=== PATIENT | male | born 1990 | race Caucasian/White ===

== ENCOUNTER 2019-04-12 11:11 | Outpatient (REF) | payer BC, SELFPAY ==
[2019-04-12 12:31] LABS: Absolute Basophil Count 0.07 k/cumm (0.0-0.2); Absolute Eosinophil Count 0.04 k/cumm (0.0-0.7); Absolute Lymphocyte Count 0.55 k/cumm (1.2-3.4); Absolute Neutrophil Count 2.41 k/cumm (1.2-6.7); Basophils % 2.1; Eosinophils % 1.2; Lymphocytes % 16.3; Mean Corp. HGB Concentration 24.1 g/dL (32.0-36.0); Mean Corpuscular Hemoglobin 16.4 pg (27.0-33.0); Mean Corpuscular Volume 67.9 fL (80-95); Monocytes % 8.9; Neutrophils % 71.5; RBC 2.99 m/cumm (4.50-6.00); White Blood Cell Count 3.37 k/cumm (4.4-10.8)
[2019-04-12 12:41] LABS: ALT 15 U/L (16-63); Albumin 4.2 g/dL (3.4-5.0); Alkaline Phosphatase 61 U/L (46-116); Anion Gap 9.7 mmol/L (3-11); BUN 12 mg/dL (7-18); Bilirubin, Total 0.9 mg/dL (0.2-1.0); CO2 25.3 mmol/L (21.0-32.0); CREATININE 0.78 mg/dL (0.70-1.30); Calcium 8.6 mg/dL (8.5-10.1); Chloride 105 mmol/L (98-107); Glucose 116 mg/dL (70-100); Potassium 4.3 mmol/L (3.5-5.1); Sodium 140 mmol/L (136-145); Total Protein 7.2 g/dL (6.4-8.2)
[2019-04-12 12:42] LABS: AST < 5 U/L (15-37)
[2019-04-12 13:37] LABS: HGB 4.9 g/dL (13.5-17.5)
[2019-04-12 13:38] LABS: HCT 20.3 % (40.0-50.0)
[2019-04-12 13:49] LABS: Anisocytosis 2+; Diff Comment RBC Morph Reviewed; Hypochromasia 3+; Microcytosis 3+; Polychromasia Present
[2019-04-12 13:50] LABS: Poikilocytes 2+
[2019-04-12 13:51] LABS: Platelet Count 241 x1000/uL (130-400)
== END 2019-04-12 11:31 ==
LOC: NCHCN 11:11
PROVIDERS: PCP Nurse Practitioner; Visit Provider Nurse Practitioner
DX: R05 Cough (principal); R06.02 Shortness of breath; D50.9 Iron deficiency anemia, unspecified
CPT/HCPCS: 80053; 85025

== ENCOUNTER 2019-04-12 15:50 | Inpatient (IN) | payer BC, SELFPAY ==
[2019-04-12] VITALS (18 sets, daily range): BP systolic 121–147; BP diastolic 51–76; PULSE 71–86; RESP 14–25; TEMP 36.3–37.2; O2SAT 98–99
--- NOTE | 2019-04-12 16:11 | NUR.NOTE ---
iv placed pt on playground monitor labs drawn Nursing Note:
[2019-04-12 16:27] LABS: Abs Immature Grans 0.01 k/cumm (0.0-0.09); Absolute Basophil Count 0.09 k/cumm (0.0-0.2); Absolute Eosinophil Count 0.04 k/cumm (0.0-0.7); Absolute Lymphocyte Count 0.73 k/cumm (1.2-3.4); Absolute Monocyte Count 0.35 k/cumm (0.11-0.7); Absolute Neutrophil Count 3.07 k/cumm (1.2-6.7); Basophils % 2.1; Eosinophils % 0.9; Immature Grans % 0.2; Mean Corp. HGB Concentration 23.9 g/dL (32.0-36.0); Mean Corpuscular Hemoglobin 16.2 pg (27.0-33.0); Mean Corpuscular Volume 67.9 fL (80-95); Monocytes % 8.2; Neutrophils % 71.6; Platelet Count 279 x1000/uL (130-400); RBC 3.02 m/cumm (4.50-6.00); RBC Distribution Width 24.3 % (11.8-14.1); White Blood Cell Count 4.29 k/cumm (4.4-10.8)
[2019-04-12 16:31] LABS: PTT Activated 20.3 sec (21.0-31.4); Prothrombin Time 10.4 sec (9.3-11.0)
--- NOTE | 2019-04-12 16:32 | DI.RAD_ITS ---
SYMPTOM/DIAGNOSIS: COUGH PA AND LATERAL CHEST: 04/12 Heart is at the upper limits of normal in size to mildly enlarged. The lungs are generally clear. No pleural effusion is seen. There is a presumed small hiatal hernia. CONCLUSION: Borderline cardiomegaly. No evidence of acute intrapulmonary process.
[2019-04-12 16:33] LABS: HGB 4.9 g/dL (13.5-17.5)
[2019-04-12 16:34] LABS: HCT 20.5 % (40.0-50.0)
--- NOTE | 2019-04-12 16:38 | ED.GENADUL_ITS ---
Discharge Plan Disposition Patient Disposition: [facility] INPATIENT Condition: Stable Discharge Details Chief Complaint: GenMedical Clinical Impression: Iron deficiency anemia Admit Date/Time: 04/12/19 17:28 Admit Provider: Rocky Portillo Attending Provider: Rocky Portillo Primary Care Provider: Kaylee Villalta ED Provider: James Clay Medical Decision Making Patient presenting the emergency department chief complaint of low blood counts. Patient reports that he is attempting to establish new primary care provider today when they checked labs and noticed a significantly low hemoglobin. They sent patient to emergency department for evaluation. Patient states that over the past month he has had dyspnea on exertion, and a mild dry cough otherwise denies fever chills, melena, hematochezia, abnormal bruising or bleeding but does state significant malaise. Patient has history of GERD and hiatal hernia otherwise denies any past medical problems. Physical exam shows significant pallor to the skin and oral mucosa, no obvious signs of ecchymosis or abnormal bruising, no tachycardia, no dyspnea, no hypotension, soft nontender abdomen, no CVA tenderness. Given report of low hemoglobin with hemoglobin of 4 reported by patient and patient's physical presentation I do feel that patient is having symptomatic anemia. Plan to do lab work-up, establish IV access, and type and cross patient. I did discuss with patient risk versus benefit of blood transfusion which consent was obtained. 2 units was ordered immediately. Review of labs show hemoglobin of 4.9, low MCV MCH MCHC, normal platelets, unremarkable CMP, iron TIBC and ferritin studies all show low counts, patient has a positive blood type. Patient was Hemoccult negative. Consulted with hospitalist Dr. Mcclelland about admission for the patient for anemia. He agreed for admission but did request that I consult with Dr. Cruz in regards to upper endoscopy and possible colonoscopy if needed. Did discuss with Dr. Cruz this and she was able to come and see patient for consultation. Patient was agreeable to the plan of care for admission and remained stable throughout emergency department stay. HPI General Mode of arrival: ambulatory . Date/Time Provider Initiated Documentation: 04/12/19 16:02 . Limitations to Documentation: no limitations . Information obtained by: patient and RN notes reviewed . History of Present Illness 28 year old M presents to the emergency department with the chief complaint of Anemia, described as similar to prior episodes, Quality is described as other (Denies pain or discomfort), Patient started experiencing this month(s) (1) and it has been constant. No relieving factors improve symptom(s), No exacerbating factors reported . Patient notes cough. Patient did receive the following treatments prior to arrival, none Related Data Home Medications Medication Instructions Recorded Confirmed omeprazole 40 mg PO BID #180 capsule. 04/14/16 04/12/19 cholecalciferol (vitamin D3) 4,000 unit PO DAILY 04/12/19 04/12/19 [Vitamin D3] magnesium oxide 400 mg PO DAILY 04/12/19 04/12/19 Allergies Allergy/AdvReac Type Severity Reaction Status Date / Time No Known Allergies Allergy Unverified 04/12/19 16:01 General Stated Complaint: GenMedical ALLEGRA: 2 Review of Systems Constitutional Denies chills, Denies fever(s) and Reports malaise Cardiovascular Denies chest pain, Denies chest pain with activity, Denies edema and Reports dyspnea on exertion Respiratory Denies chest congestion, Reports cough, Denies hemoptysis and Reports dyspnea on exertion Gastrointestinal Denies abdominal pain, Denies melena, Denies hematochezia, Reports heartburn, Denies nausea and Denies vomiting Integumentary/Breasts Denies rash Hematologic/Lymphatic Denies easy bleeding and Denies easy bruising PFSH Family History Mother No problems noted. Father Diabetes Sister No problems noted. Grandfather No problems noted. Grandfather Neoplasm BRAIN Grandmother No problems noted. Grandmother , CAR ACCIDENT at age 45. No problems noted. Social History Smoking/Tobacco Use Status: Former Tobacco Use Drug use: Never Details: quit smoking 3 years ago Do you feel safe at home: Yes Do you feel safe in your relationship?: Yes Exam Const General: cooperative Orientation: alert, awake and oriented x3 HENMT Mouth: lip normal, tongue normal, moist mucous membranes and oral mucosa abnormal (mucosal pallor) Resp Effort & Inspection: normal respiratory effort and able to speak in complete sentences Auscultation: clear to auscultation bilaterally Cardio Rate: regular rate and not tachycardic Rhythm: regular rhythm Heart Sounds: S1 normal and S2 normal GI Palpation: soft, not firm, no guarding, no masses, no pulsatile masses, not rigid and nontender Auscultation: normal bowel sounds Rectal Exam: visual inspection normal, normal sphincter tone and heme negative stool Neuro General: alert, awake, oriented x3, gait normal and moves all extremities Course Vital Signs Temperature 37.0 C 04/12/19 15:54 Pulse 80 04/12/19 15:54 Respiratory Rate 24 04/12/19 15:54 Pulse Oximetry 98 04/12/19 15:54 Temperature 37.0 C 04/12/19 15:54 Temperature Source Skin 04/12/19 15:54 Pulse 80 04/12/19 15:54 Respiratory Rate 18 04/12/19 16:23 Respiratory Effort 04/12/19 16:23 Respiratory Depth Normal 04/12/19 16:23 Respiratory Pattern Normal 04/12/19 16:23 Pulse Oximetry 98 04/12/19 15:54 Oxygen Delivery Method Room Air 04/12/19 15:54 Oxygen Flow Rate 0 04/12/19 15:54 Pain Level 0 04/12/19 15:54 Lab/Test Results Lab/Test Results: Laboratory Tests Range/Units 04/12/19 04/12/19 04/12/19 16:05 16:05 16:10 WBC (4.4-10.8) k/cumm 4.29 L RBC (4.50-6.00) m/cumm 3.02 L Hgb (13.5-17.5) g/dL 4.9 L* Hct (40.0-50.0) % 20.5 L* MCV (80-95) fL 67.9 L MCH (27.0-33.0) pg 16.2 L MCHC (32.0-36.0) g/dL 23.9 L RDW (11.8-14.1) % 24.3 H Plt Count (130-400) x1000/uL 279 MPV (8.0-11.0) fL Immature Gran % 0.2 Neutrophils % 71.6 Lymphocytes % 17.0 Monocytes % 8.2 Eosinophils % 0.9 Basophils % 2.1 Absolute Neutrophils (1.2-6.7) k/cumm 3.07 Absolute Lymphocytes (1.2-3.4) k/cumm 0.73 L Absolute Monocytes (0.11-0.7) k/cumm 0.35 Absolute Eosinophils (0.0-0.7) k/cumm 0.04 Absolute Basophils (0.0-0.2) k/cumm 0.09 PT (9.3-11.0) sec 10.4 INR (0.9-1.1) 1.0 APTT (21.0-31.4) sec 20.3 L Crossmatch See Detail
[2019-04-12 16:46] LABS: ALT 15 U/L (16-63); AST 8 U/L (15-37); Albumin 4.2 g/dL (3.4-5.0); Alkaline Phosphatase 60 U/L (46-116); BUN 12 mg/dL (7-18); Bilirubin, Total 0.9 mg/dL (0.2-1.0); Calcium 8.7 mg/dL (8.5-10.1); Chloride 103 mmol/L (98-107); Ferritin 1 ng/mL (8-388); Glucose 101 mg/dL (70-100); Sodium 138 mmol/L (136-145); Total Protein 7.5 g/dL (6.4-8.2)
[2019-04-12 16:59] LABS: Anisocytosis 3+; Microcytosis 3+; Polychromasia Present
[2019-04-12 17:00] LABS: Hypochromasia 3+; Poikilocytes 3+
[2019-04-12 17:13] LABS: Iron 23 ug/dL (50-175); Total Iron Binding Capacity 513 ug/dL (250-450); Transferrin Sat 4 % (20-55)
--- NOTE | 2019-04-12 17:14 | DI.VRAD_ITS ---
EXAM: XR Chest, 2 Views EXAM DATE/TIME: 04/12/2019 4:33 PM CLINICAL HISTORY: 28 years old, male; Other: Cough TECHNIQUE: Imaging protocol: XR of the chest Views: 2 views. COMPARISON: CR CHEST 2 VIEWS PA,LAT 04/03/2016 12:27 PM FINDINGS: Lungs: Unremarkable. No consolidation. Pleural space: Unremarkable. No pleural effusion. No pneumothorax. Heart/Mediastinum: Findings suspicious for gastric hiatus hernia. The heart is borderline enlarged. Bones/joints: Unremarkable. IMPRESSION: 1. Borderline cardiomegaly. 2. Gastric hiatus hernia. Dictated and Authenticated by: Frandy Lott MD. Ordering:CHRIS Ramirez MD
[2019-04-12] MEDS: Pantoprazole 40 MG VIAL 80 MG IVP (17:58)
--- NOTE | 2019-04-12 19:08 | SCONE_ITS ---
Date of service: 04/12/19 Time of Service: 19:08 Assessment and Plan (1) Iron deficiency anemia: Current visit: No Status: Acute (2) Esophageal ulcer without bleeding: Current visit: No Status: Acute (3) Hiatal hernia with GERD and esophagitis: Current visit: No Status: Acute Patient is currently hemodynamically stable. He is asymptomatic other than some fatigue and dizziness. He is having no chest patient pain or shortness of breath. He is not vomiting up any blood. He has not noticed dark tarry stools or blood in his stools. He is currently hemodynamically stated stable. Plan transfusion today. IV iron replacement. IV Protonix and p.o. Carafate. EGD in a.m. Patient has had the procedure done in the past. We discussed the procedure today we could expect during the procedure post procedurally recovery time and risks, Including but not limited to: bleeding infection perforation aspiration and complications from anesthesia. He should be okay to do as a MAC. We will plan on doing EGD in a.m. History of Present Illness Narrative: pt seen in the ED. pt was feeling weak/tired today. He had worsening s/s of his GERD recently. He has a hx of gerd and esophageal ulcers. Had similar event in 2016. again s/s have worse of as late. He has been on prilosec. He takes asa/nsaids 2-3x/month. He does not use tobacco. He drinks occ on weekends. 2-3 cafeinated beverages a day. He denies any n/v. he denies any CP or SOB. He denies noting any blood in his stools or black tarry stools. He is still taking his PPI. He has no abdom pain/tenderness. He is hemodyncamically stable. Consults Consult date: 04/12/19 Requesting physician: Rocky Portillo Review of Systems Review of Systems All systems reviewed & are unremarkable except as noted in HPI and below Constitutional Reports as per HPI, Reports system reviewed and no additional complaints, except as docu, Denies anorexia, Denies chills, Denies difficulty sleeping, Denies fatigue, Denies headache(s), Denies lethargy, Denies malaise, Denies poor appetite, Denies weakness, Denies weight gain and Denies weight loss Eyes Reports as per HPI, Reports system reviewed and no additional complaints, except as docu and Denies change in vision ENT Reports system reviewed and no additional complaints, except as docu, Reports as per HPI, Denies change in voice, Denies dental pain, Denies dysphagia, Denies dizziness, Denies facial pain, Denies headache(s) and Denies odynophagia Cardiovascular Reports as per HPI, Reports system reviewed and no additional complaints, except as docu, Denies chest pain, Denies chest pain with activity, Denies syncope, Denies leg edema and Denies dyspnea Respiratory Reports as per HPI, Reports system reviewed and no additional complaints, except as docu, Denies chest congestion, Denies cough, Denies pain with cough and Denies dyspnea Gastrointestinal Reports as per HPI, Reports system reviewed and no additional complaints, except as docu, Denies abdominal pain, Denies bloating, Denies change in bowel habits, Denies change in stool character, Denies constipation, Denies cramping, Denies dysphagia, Denies early satiety, Denies heartburn, Denies diarrhea, Denies nausea, Denies odynophagia and Denies vomiting Comments: says he is been having signif more H/I lately. He denies pain or diff swallowing. he denies wt loss. he denies pain or difficulty having a BM. He denies n/v. He denies BRBPR or black tarry stools. He does not have any abdom pain at the time of exam. Genitourinary Reports system reviewed and no additional complaints, except as docu Musculoskeletal Reports system reviewed and no additional complaints, except as docu, Reports as per HPI, Denies abnormal gait, Denies arthralgias and Denies muscle weakness Integumentary/Breasts Reports system reviewed and no additional complaints, except as docu, Reports as per HPI, Denies changing lesions, Denies new lesions and Denies jaundice Neurologic Reports system reviewed and no additional complaints, except as docu, Reports as per HPI, Denies abnormal speech, Denies abnormal gait, Denies dizziness, Denies syncope, Denies headache(s), Denies memory loss and Denies weakness Psychiatric Reports system reviewed and no additional complaints, except as docu, Reports as per HPI, Denies change in appetite and Denies memory loss Endocrine Denies fatigue, Denies polydipsia and Denies polyuria Hematologic/Lymphatic Reports system reviewed and no additional complaints, except as docu, Denies easy bleeding and Denies easy bruising Comments: not using any blood thinners no hx of coag d/o Allergic/Immunologic Denies system reviewed and no additional complaints, except as docu, Reports as per HPI and Denies urticaria PFSH Medical History Esophageal ulcer without bleeding (Acute) Hiatal hernia (Acute) Hiatal hernia with GERD and esophagitis (Acute) Iron deficiency anemia (Acute) Surgical History EGD - MAC (04/03/16) Family History Mother No problems noted. Father Diabetes Sister No problems noted. Grandfather No problems noted. Grandfather Neoplasm BRAIN Grandmother No problems noted. Grandmother , CAR ACCIDENT at age 45. No problems noted. 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 [employer] What is your relationship status?: Panel score (0-1 are the most socially isolated patients): 1 Do you feel safe at home: Yes Do you feel safe in your relationship?: Yes Exam Const General: cooperative, healthy appearing, comfortable, no acute distress, well developed and well groomed Nutritional Appearance: average body habitus and well nourished Orientation: alert, awake and oriented x3 HENMT Head: normal to inspection, normocephalic and atraumatic Ears: hearing grossly normal bilaterally and external ears normal General nose exam: external nose normal Face and sinus: normal facial exam and sinuses nontender Mouth: oral mucosae normal, lip normal, tongue normal and moist mucous membranes Teeth and gingiva: dentition normal Eyes General: appearance normal, both eyes and all related structures Conjunctivae: conjunctivae normal Sclera: sclerae normal Pupils: PERRL Neck Neck: normal visual inspection and full ROM Chest Chest: normal inspection of the chest Resp Effort & Inspection: normal respiratory effort, able to speak in complete sentences, no cough, no nasal flaring, not tachypneic and no use of accessory muscles Auscultation: clear to auscultation bilaterally, no rales, no rhonchi and no wheezes Cardio Jugular venous pressure: no JVD Rate: regular rate Rhythm: regular rhythm GI Inspection: normal to inspection, no edema and non-distended Palpation: soft, no masses, nontender and No ascites Auscultation: normal bowel sounds Other: no epigastric pain. currently denies H/I. no chest pain or pressure. Skin General skin exam: no rashes or lesions noted Trauma: no lacerations or abrasions Neuro General: alert, oriented x3, oriented, gait normal, moves all extremities, no focal motor deficits and CN's II-XI intact bilaterally Cognition: normal cognition Speech: speech normal Gait: normal gait Motor: muscle tone normal throughout Extrem General: normal to inspection, full ROM and no clubbing, cyanosis or edema Psych Appearance: grossly normal and well kempt Mental Status: mental status grossly normal Speech and Movement: speech and movement normal Affect: normal affect Results Last Vital Signs Temp 37.0 C 04/12/19 18:35 Pulse 78 04/12/19 18:35 Resp 14 04/12/19 18:35 BP 135/69 04/12/19 18:35 Pulse Ox 99 04/12/19 18:35 Labs : 04/12/19 16:05 04/12/19 16:05 Laboratory Results - last 24 hr 04/12/19 04/12/19 04/12/19 16:05 16:05 16:05 WBC 4.29 L RBC 3.02 L Hgb 4.9 L* Hct 20.5 L* MCV 67.9 L MCH 16.2 L MCHC 23.9 L RDW 24.3 H Plt Count 279 MPV Immature Gran % 0.2 Neutrophils % 71.6 Lymphocytes % 17.0 Monocytes % 8.2 Eosinophils % 0.9 Basophils % 2.1 Absolute Neutrophils 3.07 Absolute Lymphocytes 0.73 L Absolute Monocytes 0.35 Absolute Eosinophils 0.04 Absolute Basophils 0.09 RBC Morphology See below Polychromasia Present Hypochromasia 3+ Poikilocytosis 3+ Anisocytosis 3+ Microcytosis 3+ PT INR APTT Sodium 138 Potassium 4.0 Chloride 103 Carbon Dioxide 27.0 Anion Gap 8.0 BUN 12 Creatinine 0.80 Estimated GFR/1.73 m2 >= 60.00 Glucose 101 H Calcium 8.7 Iron 23 L TIBC 513 H Transferrin % Sat 4 L Ferritin 1 L Total Bilirubin 0.9 AST 8 L ALT 15 L Alkaline Phosphatase 60 Total Protein 7.5 Albumin 4.2 Patient ABO/Rh Antibody Screen Crossmatch 04/12/19 04/12/19 16:05 16:10 WBC RBC Hgb Hct MCV MCH MCHC RDW Plt Count MPV Immature Gran % Neutrophils % Lymphocytes % Monocytes % Eosinophils % Basophils % Absolute Neutrophils Absolute Lymphocytes Absolute Monocytes Absolute Eosinophils Absolute Basophils RBC Morphology Polychromasia Hypochromasia Poikilocytosis Anisocytosis Microcytosis PT 10.4 INR 1.0 APTT 20.3 L Sodium Potassium Chloride Carbon Dioxide Anion Gap BUN Creatinine Estimated GFR/1.73 m2 Glucose Calcium Iron TIBC Transferrin % Sat Ferritin Total Bilirubin AST ALT Alkaline Phosphatase Total Protein Albumin Patient ABO/Rh A Positive Antibody Screen Negative Crossmatch See Detail
--- NOTE | 2019-04-12 19:28 | W.PM.HP.N ---
Date of service: 04/12/19 Time of Service: 19:28 Assessment and Plan (1) Iron deficiency anemia: Current visit: No Status: Acute transfusion of 2 to 3 units of PRBC to Hb over 7 gm, then he will need further iron infusions to correct his iron deficiency anemia. I explained to him that his PCP will need to closely monitor his iron levels and his anemia. Furthermore, I think that he ought to have repeat EGD in 8 weeks to assess healing of any esophageal or gastric or duodenal ulcers. He may need further workup for Malick Ferguson syndrome Qualifiers: Iron deficiency anemia type: chronic blood loss Qualified Code(s): D50.0 - Iron deficiency anemia secondary to blood loss (chronic) (2) Hiatal hernia with GERD and esophagitis: Current visit: No Status: Acute as above. I have put him on iv protonix 40 [address] Cruz has added Carafate. She plans to perform EGD in the a.m. Further workup and treatment will be determined by her findings. He may need treatment for H. pylori if his biopsies are positive. He also may need workup for Z-E syndrome. History of Present Illness Chief Complaint: anemia Narrative: 28 yr old male w/ PMH of hiatal hernia and severe GERD, gastritis and esophageal ulcers and iron deficiency anemia (dx during admission 03/2016 by EGD). Patient presented at that time w/ fatigue, exertional dyspnea, water brash and non-productive cough and was found to be severely anemic w/ Hb 4.3 gm. He was transfused 3 units of PRBC at that time and underwent and EGD by which the diagnosis was made and he was put on omeprazole 40 mg BID. He now presents with the same symptoms. 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 He denies any hematochezia, hematemesis, abdominal pains nor any melena. He saw a new PCP today and had routine labs checked when he was found to be severely anemic w/ Hb of 4.9 gm, HCT 20%, and low MCV (67), MCH (16.4), MCHC (24.1), high RDW (24) and low iron (23) , ferritin (1), but otherwise normal platelets, WBC, LFT and coagulation studies (P.T., aPTT). He is being admitted for transfusion of PRBC to correct his anemia and for surgical consultation for EGD +/- c-scope. He most likely has chronic iron deficiency anemia caused by slow UGI bleeding from recurrent esophageal and or gastric ulcers. Patient previously had been on prescription strength omeprazole 40 mg BID in March 2016 but when his Rx ran out he went on OTC omeprazole until recently when Kaylee Villalta prescribed omeprazole 40 mg BID. Review of Systems Constitutional Reports as per HPI and Reports fatigue Cardiovascular Reports system reviewed and no additional complaints, except as docu, Denies chest pain, Denies chest pain with activity and Reports dyspnea on exertion Respiratory Reports cough and Reports dyspnea on exertion Gastrointestinal Denies abdominal pain, Denies melena, Denies hematochezia, Denies coffee ground emesis, Reports dyspepsia, Reports heartburn, Denies diarrhea, Denies nausea, Denies vomiting and Denies hematemesis Genitourinary Reports system reviewed and no additional complaints, except as docu Musculoskeletal Reports system reviewed and no additional complaints, except as docu Integumentary/Breasts Reports system reviewed and no additional complaints, except as docu Neurologic Reports system reviewed and no additional complaints, except as docu Endocrine Reports fatigue Hematologic/Lymphatic Denies easy bleeding and Denies easy bruising Allergic/Immunologic Reports system reviewed and no additional complaints, except as docu [facility] Surgical History EGD - MAC (04/03/16) Family History Mother No problems noted. Father Diabetes Sister No problems noted. Grandfather No problems noted. Grandfather Neoplasm BRAIN Grandmother No problems noted. Grandmother , CAR ACCIDENT at age 45. No problems noted. 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 04/14/16 04/12/19 History cholecalciferol (vitamin D3) 4,000 unit PO DAILY 04/12/19 04/12/19 History [Vitamin D3] magnesium oxide 400 mg PO DAILY 04/12/19 04/12/19 History Allergies Allergy/AdvReac Type Severity Reaction Status Date / Time No Known Allergies Allergy Unverified 04/12/19 16:01 Exam Const General: cooperative, no acute distress and well developed Nutritional Appearance: overweight Orientation: alert, awake and oriented x3 HENMT Head: normal to inspection, no palpable skull fracture, normocephalic and atraumatic Ears: hearing grossly normal bilaterally and EAC abnormal excessive cerumen bilaterally General nose exam: external nose normal, nares normal, no nasal polyps, nasal mucous membranes and turbinates normal and no nasal discharge Face and sinus: normal facial exam Mouth: oral mucosae normal, lip normal, tongue normal, oropharynx normal and moist mucous membranes Teeth and gingiva: dentition normal and gingiva normal Eyes General: appearance normal, both eyes and all related structures Alignment and Position: alignment normal Periorbital: periorbital findings normal Eyelids: eyelids normal Conjunctivae: conjunctival abnormality bilaterally pallor Sclera: sclerae normal Cornea: corneas normal Pupils: PERRL EOM: EOM intact bilaterally Neck Neck: normal visual inspection, full ROM, no lymphadenopathy, trachea midline, supple and no JVD Thyroid: thyroid normal Carotids: normal carotid upstroke Lymphatic: no lymphadenopathy noted Resp Effort & Inspection: normal respiratory effort and able to speak in complete sentences Auscultation: clear to auscultation bilaterally Cardio Jugular venous pressure: no JVD Palpation: normal PMI Rate: regular rate Rhythm: regular rhythm Heart Sounds: S1 normal, S2 normal and normal, physiologic split S2 Pulses: normal peripheral pulses GI Inspection: obesity Palpation: soft and no hepatosplenomegaly Percussion: normal to percussion Auscultation: normal bowel sounds Rectal Exam: deferred Back/Spine/Pelvis Cervical Spine: normal cervical lordosis Thoracic/Lumbar Spine: thoracic and lumbar spine normal to inspection Skin General skin exam: no rashes or lesions noted, elasticity normal and turgor normal Neuro General: alert, awake, oriented x3, moves all extremities, normal light touch, pain and propioception, no focal motor deficits and CN's II-XI intact bilaterally Extrem General: normal to inspection, full ROM, normal capillary refill, no joint enlargement, no clubbing, cyanosis or edema, no pedal edema and no calf tenderness Psych Appearance: grossly normal Mental Status: mental status grossly normal Speech and Movement: speech and movement normal Mood: congruent mood Affect: normal affect Attitude: cooperative Thought Process: normal Thought Content: normal Insight: insight good Judgment: judgment good Results Labs : 04/12/19 16:05 04/12/19 16:05 Laboratory Results - last 24 hr 04/12/19 04/12/19 04/12/19 16:05 16:05 16:05 WBC 4.29 L RBC 3.02 L Hgb 4.9 L* Hct 20.5 L* MCV 67.9 L MCH 16.2 L MCHC 23.9 L RDW 24.3 H Plt Count 279 MPV Immature Gran % 0.2 Neutrophils % 71.6 Lymphocytes % 17.0 Monocytes % 8.2 Eosinophils % 0.9 Basophils % 2.1 Absolute Neutrophils 3.07 Absolute Lymphocytes 0.73 L Absolute Monocytes 0.35 Absolute Eosinophils 0.04 Absolute Basophils 0.09 RBC Morphology See below Polychromasia Present Hypochromasia 3+ Poikilocytosis 3+ Anisocytosis 3+ Microcytosis 3+ PT INR APTT Sodium 138 Potassium 4.0 Chloride 103 Carbon Dioxide 27.0 Anion Gap 8.0 BUN 12 Creatinine 0.80 Estimated GFR/1.73 m2 >= 60.00 Glucose 101 H Calcium 8.7 Iron 23 L TIBC 513 H Transferrin % Sat 4 L Ferritin 1 L Total Bilirubin 0.9 AST 8 L ALT 15 L Alkaline Phosphatase 60 Total Protein 7.5 Albumin 4.2 Patient ABO/Rh Antibody Screen Crossmatch 04/12/19 04/12/19 16:05 16:10 WBC RBC Hgb Hct MCV MCH MCHC RDW Plt Count MPV Immature Gran % Neutrophils % Lymphocytes % Monocytes % Eosinophils % Basophils % Absolute Neutrophils Absolute Lymphocytes Absolute Monocytes Absolute Eosinophils Absolute Basophils RBC Morphology Polychromasia Hypochromasia Poikilocytosis Anisocytosis Microcytosis PT 10.4 INR 1.0 APTT 20.3 L Sodium Potassium Chloride Carbon Dioxide Anion Gap BUN Creatinine Estimated GFR/1.73 m2 Glucose Calcium Iron TIBC Transferrin % Sat Ferritin Total Bilirubin AST ALT Alkaline Phosphatase Total Protein Albumin Patient ABO/Rh A Positive Antibody Screen Negative Crossmatch See Detail Last Vital Signs Temp 36.8 C 04/12/19 19:05 Pulse 81 04/12/19 19:05 Resp 19 04/12/19 19:05 BP 130/67 04/12/19 19:05 Pulse Ox 98 04/12/19 19:05
[2019-04-12] MEDS: Sucralfate 1 GM TAB PO (19:33)
[2019-04-12] MEDS: Normal Saline Flush 10 ML SYR IVP (21:31)
[2019-04-13] VITALS (17 sets, daily range): BP systolic 109–147; BP diastolic 62–80; PULSE 59–69; RESP 16–20; TEMP 35.7–37; O2SAT 96–100
[2019-04-13 00:29] LABS: HCT 22.4 % (40.0-50.0)
[2019-04-13] MEDS: diphenhydrAMINE 25 MG CAP PO (01:46)
[2019-04-13] MEDS: Acetaminophen 325 MG TAB 650 MG PO (01:46)
[2019-04-13] MEDS: Normal Saline Flush 10 ML SYR IVP (05:15)
[2019-04-13] MEDS: Normal Saline 1,000 ML 50 ML IV ×2 (05:15→20:08)
[2019-04-13] MEDS: Pantoprazole 40 MG VIAL IVP ×2 (05:15→18:23)
[2019-04-13 07:16] LABS: BUN 8 mg/dL (7-18); CREATININE 0.82 mg/dL (0.70-1.30); Calcium 8.4 mg/dL (8.5-10.1); Chloride 106 mmol/L (98-107); Glucose 95 mg/dL (70-100); Potassium 3.9 mmol/L (3.5-5.1); Sodium 141 mmol/L (136-145)
[2019-04-13 07:29] LABS: Abs Immature Grans 0.01 k/cumm (0.0-0.09); HCT 25.4 % (40.0-50.0); Mean Corp. HGB Concentration 27.2 g/dL (32.0-36.0); Mean Corpuscular Hemoglobin 19.7 pg (27.0-33.0); Mean Corpuscular Volume 72.4 fL (80-95); Platelet Count 230 x1000/uL (130-400); RBC 3.51 m/cumm (4.50-6.00); RBC Distribution Width 26.2 % (11.8-14.1); White Blood Cell Count 3.75 k/cumm (4.4-10.8)
[2019-04-13 07:35] LABS: HGB 6.9 g/dL (13.5-17.5)
[2019-04-13 08:25] LABS: Absolute Eosinophil Count 0.11 k/cumm (0.0-0.7); Absolute Lymphocyte Count 1.05 k/cumm (1.2-3.4); Absolute Monocyte Count 0.15 k/cumm (0.11-0.7); Absolute Neutrophil Count 2.48 k/cumm (1.2-6.7); Atypical Lymphocytes % 4
[2019-04-13 08:26] LABS: Anisocytosis 3+; Diff Comment Manual Differential
[2019-04-13 08:27] LABS: Hypochromasia 3+; Microcytosis 3+; Ovalocytes 3+; Schistocytes 2+
[2019-04-13] MEDS: Sucralfate 1 GM TAB PO ×4 (08:44→21:21)
[2019-04-13 09:04] LABS: Nucleated RBC 4 /100WBC
--- NOTE | 2019-04-13 10:23 | PGE_ITS ---
Date of Service Date of service: 04/13/19 Time of Service: 10:23 Assessment and Plan (1) Hiatal hernia: Current visit: No Status: Acute (2) Iron deficiency anemia: Current visit: No Status: Acute Qualifiers: Iron deficiency anemia type: chronic blood loss Qualified Code(s): D50.0 - Iron deficiency anemia secondary to blood loss (chronic) (3) Hiatal hernia with GERD and esophagitis: Current visit: No Status: Acute I did discuss with the patient this morning having the EGD done today. We did discuss we could could expect during the procedure, post procedure, recovery time and risks. Risks include bleeding infection perforation and aspiration. Also complications of anesthesia. He is received 4 units of blood total. His hemoglobin this morning was 6.9. He is asymptomatic and feels good. Further recommendations following results of the EGD Subjective Interval history since last seen: pt seen adn examined this am. Feeling better- less week and tired. denies CP or SOB. no N/V. no BM/rectal bleeding. +hun gry. has better color today. reviewed w/ pt doing EGD. He will have sedation. He had no problems w/ the procedure last time he had it done. He has no abdominal pain today Exam Const General: cooperative, healthy appearing, comfortable, no acute distress, well developed and well groomed Nutritional Appearance: average body habitus and well nourished Orientation: alert, awake and oriented x3 [facility] Head: normal to inspection, normocephalic and atraumatic Ears: hearing grossly normal bilaterally and external ears normal General nose exam: external nose normal Face and sinus: normal facial exam and sinuses nontender Mouth: oral mucosae normal, lip normal, tongue normal and moist mucous membranes Teeth and gingiva: dentition normal Eyes General: appearance normal, both eyes and all related structures Conjunctivae: conjunctivae normal Sclera: sclerae normal Pupils: PERRL Neck Neck: normal visual inspection and full ROM Chest Chest: normal inspection of the chest Resp Effort & Inspection: normal respiratory effort, able to speak in complete sentences, no cough, no nasal flaring, not tachypneic and no use of accessory muscles Auscultation: clear to auscultation bilaterally, no rales, no rhonchi and no wheezes Cardio Jugular venous pressure: no JVD Rate: regular rate Rhythm: regular rhythm GI Inspection: normal to inspection, no edema and non-distended Palpation: soft, no masses, nontender and No ascites Auscultation: normal bowel sounds Skin General skin exam: no rashes or lesions noted Trauma: no lacerations or abrasions Neuro General: alert, oriented x3, oriented, gait normal, moves all extremities, no focal motor deficits and CN's II-XI intact bilaterally Cognition: normal cognition Speech: speech normal Gait: normal gait Motor: muscle tone normal throughout Extrem General: normal to inspection, full ROM and no clubbing, cyanosis or edema Psych Appearance: grossly normal and well kempt Mental Status: mental status grossly normal Speech and Movement: speech and movement normal Affect: normal affect Objective Objective Clinical Data: Abnormal lab results 04/12/19 04/12/19 04/12/19 Range/Units 16:05 16:05 16:05 WBC 4.29 L (4.4-10.8) k/cumm RBC 3.02 L (4.50-6.00) m/cumm Hgb 4.9 L* (13.5-17.5) g/dL Hct 20.5 L* (40.0-50.0) % MCV 67.9 L (80-95) fL MCH 16.2 L (27.0-33.0) pg MCHC 23.9 L (32.0-36.0) g/dL RDW 24.3 H (11.8-14.1) % Absolute Lymphocytes 0.73 L (1.2-3.4) k/cumm APTT (21.0-31.4) sec Glucose 101 H (70-100) mg/dL Calcium (8.5-10.1) mg/dL Iron 23 L (50-175) ug/dL TIBC 513 H (250-450) ug/dL Transferrin % Sat 4 L (20-55) % Ferritin 1 L (8-388) ng/mL AST 8 L (15-37) U/L ALT 15 L (16-63) U/L Crossmatch 04/12/19 04/12/19 04/13/19 Range/Units 16:05 16:10 00:25 WBC (4.4-10.8) k/cumm RBC (4.50-6.00) m/cumm Hgb 6.0 L* (13.5-17.5) g/dL Hct 22.4 L (40.0-50.0) % MCV (80-95) fL MCH (27.0-33.0) pg MCHC (32.0-36.0) g/dL RDW (11.8-14.1) % Absolute Lymphocytes (1.2-3.4) k/cumm APTT 20.3 L (21.0-31.4) sec Glucose (70-100) mg/dL Calcium (8.5-10.1) mg/dL Iron (50-175) ug/dL TIBC (250-450) ug/dL Transferrin % Sat (20-55) % Ferritin (8-388) ng/mL AST (15-37) U/L ALT (16-63) U/L Crossmatch See Detail 04/13/19 04/13/19 Range/Units 06:40 06:40 WBC 3.75 L (4.4-10.8) k/cumm RBC 3.51 L (4.50-6.00) m/cumm Hgb 6.9 L* (13.5-17.5) g/dL Hct 25.4 L (40.0-50.0) % MCV 72.4 L D (80-95) fL MCH 19.7 L (27.0-33.0) pg MCHC 27.2 L (32.0-36.0) g/dL RDW 26.2 H (11.8-14.1) % Absolute Lymphocytes 1.05 L (1.2-3.4) k/cumm APTT (21.0-31.4) sec Glucose (70-100) mg/dL Calcium 8.4 L (8.5-10.1) mg/dL Iron (50-175) ug/dL TIBC (250-450) ug/dL Transferrin % Sat (20-55) % Ferritin (8-388) ng/mL AST (15-37) U/L ALT (16-63) U/L Crossmatch Vital Signs Temperature 36.5 C 04/13/19 08:53 Temperature Source Tympanic 04/13/19 07:28 Pulse 64 04/13/19 08:53 Pulse Rhythm Regular 04/13/19 08:56 Respiratory Rate 16 04/13/19 08:53 Respiratory Effort Non-Labored 04/13/19 08:56 Respiratory Depth Normal 04/13/19 08:56 Respiratory Pattern Normal 04/13/19 08:56 Blood Pressure 126/75 04/13/19 08:53 Pulse Oximetry 97 04/13/19 08:53 Oxygen Delivery Method Room Air 04/13/19 08:53 Oxygen Flow Rate 0 04/13/19 08:53 Pain Level 0 04/13/19 07:28 Intake & Output 04/12/19 04/12/19 04/13/19 11:59 23:59 11:59 Intake Total 630 / 630 645 / 645 Balance 630 / 630 645 / 645 Weight 122.8 kg 121.9 kg Intake: IV 230 / 230 Oral 100 / 100 Blood Product 300 / 300 600 / 600 Rbc Leuko Reduced Unit 300 / 300 [id number] Rbc Leuko Reduced Unit 300 / 300 [id number] Rbc Leuko Reduced Unit 300 / 300 [id number] Other 45 / 45 Rbc Leuko Reduced Unit 25 / 25 [id number] Rbc Leuko Reduced Unit 20 / 20 [id number] Other: Urine Color Yellow Urine Appearance Clear Clear Urine Odor Normal Voiding Methods Toilet Laboratory Results WBC 3.75 k/cumm (4.4-10.8) L 04/13/19 06:40 RBC 3.51 m/cumm (4.50-6.00) L 04/13/19 06:40 Hgb 6.9 g/dL (13.5-17.5) L* 04/13/19 06:40 Hct 25.4 % (40.0-50.0) L 04/13/19 06:40 MCV 72.4 fL (80-95) L D 04/13/19 06:40 MCH 19.7 pg (27.0-33.0) L 04/13/19 06:40 MCHC 27.2 g/dL (32.0-36.0) L 04/13/19 06:40 RDW 26.2 % (11.8-14.1) H 04/13/19 06:40 Plt Count 230 x1000/uL (130-400) 04/13/19 06:40 MPV fL (8.0-11.0) 04/13/19 06:40 Immature Gran % See Differential 04/13/19 06:40 65.0 04/13/19 06:40 1.0 % 04/13/19 06:40 24.0 04/13/19 06:40 Atypical Lymphs % 4 04/13/19 06:40 4.0 04/13/19 06:40 3.0 04/13/19 06:40 0.0 04/13/19 06:40 3.0 % 04/13/19 06:40 Absolute Neutrophils 2.48 k/cumm (1.2-6.7) 04/13/19 06:40 Absolute Lymphocytes 1.05 k/cumm (1.2-3.4) L 04/13/19 06:40 Absolute Monocytes 0.15 k/cumm (0.11-0.7) 04/13/19 06:40 Absolute Eosinophils 0.11 k/cumm (0.0-0.7) 04/13/19 06:40 Absolute Basophils 0.00 k/cumm (0.0-0.2) 04/13/19 06:40 Nucleated RBCs 4 /100WBC 04/13/19 06:40 Manual differential 04/13/19 06:40 RBC Morphology See below 04/13/19 06:40 Present 04/12/19 16:05 3+ 04/13/19 06:40 3+ 04/12/19 16:05 3+ 04/13/19 06:40 3+ 04/13/19 06:40 3+ 04/13/19 06:40 2+ 04/13/19 06:40 PT 10.4 sec (9.3-11.0) 04/12/19 16:10 INR 1.0 (0.9-1.1) 04/12/19 16:10 APTT 20.3 sec (21.0-31.4) L 04/12/19 16:10 Sodium 141 mmol/L (136-145) 04/13/19 06:40 Potassium 3.9 mmol/L (3.5-5.1) 04/13/19 06:40 Chloride 106 mmol/L (98-107) 04/13/19 06:40 Carbon Dioxide 27.0 mmol/L (21.0-32.0) 04/13/19 06:40 8.0 mmol/L (3-11) 04/13/19 06:40 BUN 8 mg/dL (7-18) 04/13/19 06:40 0.82 mg/dL (0.70-1.30) 04/13/19 06:40 >= 60.00 (mL/min/1.73m2) 04/13/19 06:40 Glucose 95 mg/dL (70-100) 04/13/19 06:40 Calcium 8.4 mg/dL (8.5-10.1) L 04/13/19 06:40 Iron 23 ug/dL (50-175) L 04/12/19 16:05 TIBC 513 ug/dL (250-450) H 04/12/19 16:05 Transferrin % Sat 4 % (20-55) L 04/12/19 16:05 1 ng/mL (8-388) L 04/12/19 16:05 0.9 mg/dL (0.2-1.0) 04/12/19 16:05 AST 8 U/L (15-37) L 04/12/19 16:05 ALT 15 U/L (16-63) L 04/12/19 16:05 60 U/L (46-116) 04/12/19 16:05 7.5 g/dL (6.4-8.2) 04/12/19 16:05 4.2 g/dL (3.4-5.0) 04/12/19 16:05 Patient ABO/Rh A Positive 04/12/19 16:05 Antibody Screen Negative 04/12/19 16:05 Crossmatch See Detail 04/12/19 16:05
--- NOTE | 2019-04-13 10:39 | W.PM.PROGNOT ---
Date of Service Date of service: 04/13/19 Time of Service: 10:39 Assessment and Plan (1) Iron deficiency anemia: Current visit: No Status: Acute His hgb on presentation was 4.9, improved to 6.9 this morning. He is on his 4th unit of PRBCs. General surgery has been consulted, Dr. Cruz planning EGD today. He is NPO. Continue BID IV PPI and carafate. Received Venofer last evening, continue oral iron with vitamin C. Further plan based on EGD findings. 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 Will need follow-up with GI. Repeat H&H this afternoon and tomorrow morning. 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 General surgery recommends: pH probe and manometry done as an outpatient. Because of his recurrent problem with ulceration and bleeding from the hiatal hernia, and combined the Amanda's esophagus, he should have this repaired surgically. Biopsies pending. Qualifiers: Iron deficiency anemia type: chronic blood loss Qualified Code(s): D50.0 - Iron deficiency anemia secondary to blood loss (chronic) (2) Hiatal hernia: Current visit: No Status: Acute Noted on EGD in 2016, Dr. Cortes. Treatment as above. (3) Esophageal ulcer without bleeding: Current visit: No Status: Acute Also noted on EGD in 2016. Repeat EGD today. Subjective Interval history since last seen: Phi Garcia is feeling well today. He reports that he only really experienced fatigue and shortness of breath with activity and he has not been active yet today. He reports progressively worsening fatigue and shortness of breath for 1 month prior to his presentation. He denies feeling fatigued or short of breath at present. He denies abdominal pain, diarrhea, hematochezia, black or tarry stools, nausea, or vomiting. He only occasionally takes NSAIDs, he drinks alcohol occasionally on weekends, he does not use any tobacco, he drinks caffeine daily. He denies any other concerns such as cough, chest pain/pressure, palpitations, edema. He is NPO for EGD today, he is hungry. He was hospitalized in 2016 with this same presentation and had an EGD by Dr. Cortes at that time with findings including a large esophageal ulcer at the EG junction, a 5 cm sliding hiatal hernia and multiple small polyps in the stomach. He was initiated on BID PPI and gaviscon x2 weeks at that time with recommendations for repeat EGD. He does not have record of a repeat EGD following the hospitalization. He took BID PPI for some time after his previous hospitalization, but was feeling better and cut back to daily PPI on his own. He had not been seen by a provider recently until yesterday when he saw his new PCP. Exam Narrative Exam Narrative: General: well appearing young man, pale. Pleasant and cooperative, alert and oriented, in NAD. HEENT: normocephalic, atruamatic, pupils equal and round, EOMI, mucous membranes moist. Neck: supple. Cardiovascular: regular rate and rhythm, no murmur appreciated, nontachycardic. Respiratory: respirations even and unlabored, lung sounds clear bilaterally. GI: normoactive bowel sounds, abdomen soft, nontender on palpation, nondistended, no masses appreciated. Extremities: no clubbing, cyanosis or edema. Bilateral pedal pulses palpable. Objective Objective Clinical Data: Abnormal lab results 04/12/19 04/12/19 04/12/19 Range/Units 16:05 16:05 16:05 WBC 4.29 L (4.4-10.8) k/cumm RBC 3.02 L (4.50-6.00) m/cumm Hgb 4.9 L* (13.5-17.5) g/dL Hct 20.5 L* (40.0-50.0) % MCV 67.9 L (80-95) fL MCH 16.2 L (27.0-33.0) pg MCHC 23.9 L (32.0-36.0) g/dL RDW 24.3 H (11.8-14.1) % Absolute Lymphocytes 0.73 L (1.2-3.4) k/cumm APTT (21.0-31.4) sec Glucose 101 H (70-100) mg/dL Calcium (8.5-10.1) mg/dL Iron 23 L (50-175) ug/dL TIBC 513 H (250-450) ug/dL Transferrin % Sat 4 L (20-55) % Ferritin 1 L (8-388) ng/mL AST 8 L (15-37) U/L ALT 15 L (16-63) U/L Crossmatch 04/12/19 04/12/19 04/13/19 Range/Units 16:05 16:10 00:25 WBC (4.4-10.8) k/cumm RBC (4.50-6.00) m/cumm Hgb 6.0 L* (13.5-17.5) g/dL Hct 22.4 L (40.0-50.0) % MCV (80-95) fL MCH (27.0-33.0) pg MCHC (32.0-36.0) g/dL RDW (11.8-14.1) % Absolute Lymphocytes (1.2-3.4) k/cumm APTT 20.3 L (21.0-31.4) sec Glucose (70-100) mg/dL Calcium (8.5-10.1) mg/dL Iron (50-175) ug/dL TIBC (250-450) ug/dL Transferrin % Sat (20-55) % Ferritin (8-388) ng/mL AST (15-37) U/L ALT (16-63) U/L Crossmatch See Detail 04/13/19 04/13/19 Range/Units 06:40 06:40 WBC 3.75 L (4.4-10.8) k/cumm RBC 3.51 L (4.50-6.00) m/cumm Hgb 6.9 L* (13.5-17.5) g/dL Hct 25.4 L (40.0-50.0) % MCV 72.4 L D (80-95) fL MCH 19.7 L (27.0-33.0) pg MCHC 27.2 L (32.0-36.0) g/dL RDW 26.2 H (11.8-14.1) % Absolute Lymphocytes 1.05 L (1.2-3.4) k/cumm APTT (21.0-31.4) sec Glucose (70-100) mg/dL Calcium 8.4 L (8.5-10.1) mg/dL Iron (50-175) ug/dL TIBC (250-450) ug/dL Transferrin % Sat (20-55) % Ferritin (8-388) ng/mL AST (15-37) U/L ALT (16-63) U/L Crossmatch Vital Signs Temperature 36.5 C 04/13/19 08:53 Temperature Source Tympanic 04/13/19 07:28 Pulse 64 04/13/19 08:53 Pulse Rhythm Regular 04/13/19 08:56 Respiratory Rate 16 04/13/19 08:53 Respiratory Effort Non-Labored 04/13/19 08:56 Respiratory Depth Normal 04/13/19 08:56 Respiratory Pattern Normal 04/13/19 08:56 Blood Pressure 126/75 04/13/19 08:53 Pulse Oximetry 97 04/13/19 08:53 Oxygen Delivery Method Room Air 04/13/19 08:53 Oxygen Flow Rate 0 04/13/19 08:53 Pain Level 0 04/13/19 07:28 Intake & Output 04/12/19 04/12/19 04/13/19 11:59 23:59 11:59 Intake Total 630 / 630 645 / 645 Balance 630 / 630 645 / 645 Weight 122.8 kg 121.9 kg Intake: IV 230 / 230 Oral 100 / 100 Blood Product 300 / 300 600 / 600 Rbc Leuko Reduced Unit 300 / 300 [id number] Rbc Leuko Reduced Unit 300 / 300 [id number] Rbc Leuko Reduced Unit 300 / 300 [id number] Other 45 / 45 Rbc Leuko Reduced Unit 25 / 25 [id number] Rbc Leuko Reduced Unit 20 / 20 [id number] Other: Urine Color Yellow Urine Appearance Clear Clear Urine Odor Normal Voiding Methods Toilet Laboratory Results WBC 3.75 k/cumm (4.4-10.8) L 04/13/19 06:40 RBC 3.51 m/cumm (4.50-6.00) L 04/13/19 06:40 Hgb 6.9 g/dL (13.5-17.5) L* 04/13/19 06:40 Hct 25.4 % (40.0-50.0) L 04/13/19 06:40 MCV 72.4 fL (80-95) L D 04/13/19 06:40 MCH 19.7 pg (27.0-33.0) L 04/13/19 06:40 MCHC 27.2 g/dL (32.0-36.0) L 04/13/19 06:40 RDW 26.2 % (11.8-14.1) H 04/13/19 06:40 Plt Count 230 x1000/uL (130-400) 04/13/19 06:40 MPV fL (8.0-11.0) 04/13/19 06:40 Immature Gran % See Differential 04/13/19 06:40 65.0 04/13/19 06:40 1.0 % 04/13/19 06:40 24.0 04/13/19 06:40 Atypical Lymphs % 4 04/13/19 06:40 4.0 04/13/19 06:40 3.0 04/13/19 06:40 0.0 04/13/19 06:40 3.0 % 04/13/19 06:40 Absolute Neutrophils 2.48 k/cumm (1.2-6.7) 04/13/19 06:40 Absolute Lymphocytes 1.05 k/cumm (1.2-3.4) L 04/13/19 06:40 Absolute Monocytes 0.15 k/cumm (0.11-0.7) 04/13/19 06:40 Absolute Eosinophils 0.11 k/cumm (0.0-0.7) 04/13/19 06:40 Absolute Basophils 0.00 k/cumm (0.0-0.2) 04/13/19 06:40 Nucleated RBCs 4 /100WBC 04/13/19 06:40 Manual differential 04/13/19 06:40 RBC Morphology See below 04/13/19 06:40 Present 04/12/19 16:05 3+ 04/13/19 06:40 3+ 04/12/19 16:05 3+ 04/13/19 06:40 3+ 04/13/19 06:40 3+ 04/13/19 06:40 2+ 04/13/19 06:40 PT 10.4 sec (9.3-11.0) 04/12/19 16:10 INR 1.0 (0.9-1.1) 04/12/19 16:10 APTT 20.3 sec (21.0-31.4) L 04/12/19 16:10 Sodium 141 mmol/L (136-145) 04/13/19 06:40 Potassium 3.9 mmol/L (3.5-5.1) 04/13/19 06:40 Chloride 106 mmol/L (98-107) 04/13/19 06:40 Carbon Dioxide 27.0 mmol/L (21.0-32.0) 04/13/19 06:40 8.0 mmol/L (3-11) 04/13/19 06:40 BUN 8 mg/dL (7-18) 04/13/19 06:40 0.82 mg/dL (0.70-1.30) 04/13/19 06:40 >= 60.00 (mL/min/1.73m2) 04/13/19 06:40 Glucose 95 mg/dL (70-100) 04/13/19 06:40 Calcium 8.4 mg/dL (8.5-10.1) L 04/13/19 06:40 Iron 23 ug/dL (50-175) L 04/12/19 16:05 TIBC 513 ug/dL (250-450) H 04/12/19 16:05 Transferrin % Sat 4 % (20-55) L 04/12/19 16:05 1 ng/mL (8-388) L 04/12/19 16:05 0.9 mg/dL (0.2-1.0) 04/12/19 16:05 AST 8 U/L (15-37) L 04/12/19 16:05 ALT 15 U/L (16-63) L 04/12/19 16:05 60 U/L (46-116) 04/12/19 16:05 7.5 g/dL (6.4-8.2) 04/12/19 16:05 4.2 g/dL (3.4-5.0) 04/12/19 16:05 Patient ABO/Rh A Positive 04/12/19 16:05 Antibody Screen Negative 04/12/19 16:05 Crossmatch See Detail 04/12/19 16:05
--- NOTE | 2019-04-13 11:15 | STOM_PTH ---
PATIENT: DOLLY TALBOT LOC: U#:[id number] AGE/SX: 28/M ROOM: RE04/12/[address]: Ramiro Rivera : 1990 BED: A DIS: 04/14/2019 SPEC #: [id number] RECD: 04/13/19 12:48 STATUS: JEREMIAH PLATT #: [id number] KORTNEY: 04/13/19 11:[address]: Rocky Portillo DEPT: Surgical Specimen RECD BY: Anne Vivar ENTERED: 04/13/19 12:51 SP TYPE: STOMACH OTHR DR: Kaylee Villalta Laura M Tissues: 1 - BIOPSY BOWEL 2 - STOMACH BIOPSY 3 - STOMACH BIOPSY 4 - STOMACH BIOPSY 5 - STOMACH BIOPSY 6 - ESOPHAGUS BIOPSY 7 - ESOPHAGUS BIOPSY Procedures: GROSS AND MICRO LEVEL 4 Comments: [id number]
--- NOTE | 2019-04-13 11:33 | W.PM.ENDDOP ---
Date of service: 04/13/19 Time of Service: 11:34 Endoscopy Report DATE OF PROCEDURE: 04/13/19 PRE-OP DIAGNOSIS: acute iron defn anemia/hx of hiatal hernia nad esophageal ulcer POST-OP DIAGNOSIS: other (gastric polyps secondary to half-way use of PPI/lg hiatal hernia/barett's esophagitis/esophageal ulcer.) PROCEDURE: EGD and Bx SURGEON: Gwen Ramírez ANESTHESIA: MAC ESTIMATED BLOOD LOSS: 2 PATHOLOGY: other COMPLICATIONS: None DISPOSITION: PACU PROCEDURE DESCRIPTION: EGD REPORT Informed consent was obtained, explaining the risks and benefits of the procedure, including but not limited to bleeding, infection, perforation, aspiration, complications from the anesthesia. DESCRIPTION OF PROCEDURE: The patient was brought to the endoscopy suite and placed in left lateral decubitus position. IV and topical anesthesia was administered per the Department of Anesthesia, with constant monitoring of all vital signs. The previously lubricated Olympus scope was inserted into the orophayrnx and passed down into the esophagus. There are no esophageal varix,diverticuli or strictures apparent. He has a large hiatal hernia. The GE junction is 35 cm. He has an ulcer noted in the body of the intrathoracic stomach. he has changes at the GE junction consistent consistent with Amanda's esophagus. He has 1 large tongue of Amanda's that extends up into the esophagus. This area was extensively biopsied. He does have a large hiatal hernia. There is an ulcer in the thoracic portion of the stomach/hiatal hernia. It has a whitish eschar over it and no signs of active/old bleeding and no visible vessel. There is no other gastritis or signs of vascular compromise within the herniated portion of the stomach. the scope is passed into the abdominal stomach, and through the pylorus- which is freely patent. The duodenum is normal. The scope is passed into the second portion of the duodenum. Bile is visualized and appears grossly normal. Bx is taken of the duodenal bulb. The stomach is grossly normal no polyps/masses/gastris. Bx are taken of the,antrum, and greater curvature. He has multiple polyps within the body of the fundus secondary to long-standing PPI use. Biopsies taken of 1 of the polyps. Bx are taken of the G-E junction and of the distal esophagus. All the specimens were retrieved, and there was no bleeding noted. The cords appeared normal. The patient tolerated the procedure well and transferred to the recovery room in stable condition. pt will need to have pH probe and manometry done as an outpatient. Because of his recurrent problem with ulceration and bleeding from the hiatal hernia, and combined the Amanda's esophagus, he should have this repaired surgically. GWEN RAMÍREZ D.O.
--- NOTE | 2019-04-13 11:47 | DI.CT_ITS ---
SYMPTOMS/DIAGNOSIS: HIATAL HERNIA CHEST, ABDOMEN AND PELVIS CT: CT examination of the chest, abdomen and pelvis was performed with a bolus infusion of 100 cc's of Omnipaque 350 and ingestion of dilute barium. The lungs are clear. Mild nonspecific pleural thickening is noted at the lung bases posteriorly bilaterally. No focal mass identified. No consolidation. The tracheobronchial tree appears intact. No mediastinal or hilar adenopathy. Vascular structures of the chest are unremarkable as visualized. The heart is mildly enlarged. No axillary or supraclavicular adenopathy. The esophagus appears to have a thickened wall particularly from mid to distal esophagus. There is a hiatal hernia containing a large portion of the stomach. No evidence of obstruction. The liver is unremarkable in appearance. Spleen is moderately enlarged. Pancreas appears normal. Gallbladder and bile ducts are CT normal. The abdominal aorta is of normal diameter. The adrenals and kidneys appear normal. No urinary tract calcification or obstruction. No significant abdominal wall hernia. The appendix is normal. No evidence of diverticulitis or bowel obstruction. No abdominal or pelvic adenopathy. CONCLUSION: 1. Cardiomegaly. 2. Splenomegaly. 3. Esophageal wall thickening, this is a nonspecific findings but could represent esophagitis. There is a moderate sized hiatal hernia containing a significant portion fo the stomach.
[2019-04-13] MEDS: Breeza Beverage 473 ML BTL PO ×2 (13:29→13:30)
[2019-04-13] MEDS: Omnipaque 350 MG/ML 50 ML BTL PO (13:30)
[2019-04-13] MEDS: Omnipaque 350 MG/ML 100 ML BTL IJ (14:02)
[2019-04-13 14:50] LABS: Abs Immature Grans 0.02 k/cumm (0.0-0.09); Absolute Basophil Count 0.08 k/cumm (0.0-0.2); Absolute Eosinophil Count 0.06 k/cumm (0.0-0.7); Absolute Lymphocyte Count 0.87 k/cumm (1.2-3.4); Absolute Monocyte Count 0.31 k/cumm (0.11-0.7); Absolute Neutrophil Count 2.99 k/cumm (1.2-6.7); Basophils % 1.8; Eosinophils % 1.4; HCT 27.5 % (40.0-50.0); HGB 7.7 g/dL (13.5-17.5); Immature Grans % 0.5; Lymphocytes % 20.1; Mean Corpuscular Hemoglobin 20.2 pg (27.0-33.0); Mean Corpuscular Volume 72.2 fL (80-95); Monocytes % 7.2; RBC 3.81 m/cumm (4.50-6.00); White Blood Cell Count 4.33 k/cumm (4.4-10.8)
--- NOTE | 2019-04-13 14:56 | PDOC.CMIN ---
- If Service Date Differs Date of service: 04/13/19 Time of Service: 14:57 Care Management Initial Assess REASON FOR HOSPITALIZATION:: Anemia PAST MEDICAL HISTORY/PAST SURGICAL HISTORY:: No PMH available. Surgical History. EGD - MAC (04/03/16) PREVIOUS FUNCTIONAL STATUS/SOCIAL/FAMILY SUPPORTS:: Phi lives in [place] with his , Josette, and their four month old daughter, Sean. 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 He is also close to his mother, Renetta Rodriguez. He is independent at baseline. CURRENT FUNCTIONAL STATUS:: Phi was lying in bed when CM entered the room. He had just returned from a procedure, so he was quiet, but engaging. He stated that he went to his new PCP and upon testing they sent him to the ED for his anemia. He reported that he anticipates being discharged tomorrow once he is stable. ADVANCE DIRECTIVES:: None on file. Has patient been provided with information about the portal?: Yes Did the patient sign up for the portal?: Yes CODE STATUS:: Full Code INSURANCE COVERAGE / FINANCIAL ISSUES:: BCBS CURRENT HOME/COMMUNITY SERVICES/EQUIPMENT:: No current services or equipment. PRIMARY CARE PHYSICIAN:: Renetta Collado POTENTIAL DISCHARGE NEEDS:: Evaluation for further needs, follow up appointments PATIENT/FAMILY EDUCATION NEEDS:: Review of discharge plan, discussion of self care needs including Ask Me Three ANTICIPATED BARRIERS TO DISCHARGE:: None identified at this time. TRANSPORTATION:: Private vehicle driven by his , Josette. PLAN:: Phi will return home when medically cleared with no anticipated services at this time. He will be transported by his , Josette, via private vehicle when discharged.
[2019-04-13 15:08] LABS: Platelet Count 224 x1000/uL (130-400)
[2019-04-13 15:09] LABS: Anisocytosis 3+; Diff Comment RBC Morph Reviewed; Hypochromasia 3+; Microcytosis 3+; Ovalocytes 3+; Poikilocytes 3+; Polychromasia Present
--- NOTE | 2019-04-13 17:33 | PHARADMIT ---
Admission Pharmacy Clinical Review Code Status Full Code Current Weight 121.9 kg Renally Cleared and Narrow Therapeutic Index Meds CrCl ~142 QTc Value / Action Taken BP Control, Fever BP 123.75 Electrolytes reviewed Na 141, K+ 3.9 DVT Prophylaxis Opiate Usage / Scheduled Bowel Regimen Ordered Plt/SCr for Heparin / Enoxaparin INR for Warfarin H/H stable, WBC/Bands H&H 7.7/27.5 - improved from 04/12 Antibiotic appropriateness Cultures and Sensitivities Surgical ABX d/c within 24 hr DM control / Insulin Dosing Heart Failure (Check EF%) (NIDIA's, B-Block, Diuretics) IV to PO Switch Home Meds Reviewed Home Meds Not Ordered vitamin d3, magnesium, omeprazole Comments 4th unit of PRBCs, BID IV PPI, NPO - endoscopy today: hiatal hernia and Amanda's esophagus, will have hernia repaired surgically
[2019-04-13] MEDS: Ascorbic Acid 500 MG TAB PO (20:05)
[2019-04-13] MEDS: Ferrous Sulfate 325 MG TAB PO (20:05)
--- NOTE | 2019-04-13 22:20 | W.PM.PROGNOT ---
Date of Service Date of service: 04/13/19 Time of Service: 08:20 Objective Objective Clinical Data: Abnormal lab results 04/12/19 04/13/19 04/13/19 Range/Units 16:05 00:25 06:40 WBC (4.4-10.8) k/cumm RBC (4.50-6.00) m/cumm Hgb 6.0 L* (13.5-17.5) g/dL Hct 22.4 L (40.0-50.0) % MCV (80-95) fL MCH (27.0-33.0) pg MCHC (32.0-36.0) g/dL RDW (11.8-14.1) % Absolute Lymphocytes (1.2-3.4) k/cumm Calcium 8.4 L (8.5-10.1) mg/dL Crossmatch See Detail 04/13/19 04/13/19 Range/Units 06:40 14:38 WBC 3.75 L 4.33 L (4.4-10.8) k/cumm RBC 3.51 L 3.81 L (4.50-6.00) m/cumm Hgb 6.9 L* 7.7 L (13.5-17.5) g/dL Hct 25.4 L 27.5 L (40.0-50.0) % MCV 72.4 L D 72.2 L (80-95) fL MCH 19.7 L 20.2 L (27.0-33.0) pg MCHC 27.2 L 28.0 L (32.0-36.0) g/dL RDW 26.2 H 26.0 H (11.8-14.1) % Absolute Lymphocytes 1.05 L 0.87 L (1.2-3.4) k/cumm Calcium (8.5-10.1) mg/dL Crossmatch Vital Signs Temperature 37.0 C 04/13/19 19:36 Temperature Source Tympanic 04/13/19 19:36 Pulse 60 04/13/19 19:36 Pulse Rhythm Regular 04/13/19 19:26 Respiratory Rate 18 04/13/19 19:36 Respiratory Effort Non-Labored 04/13/19 19:26 Respiratory Depth Normal 04/13/19 19:26 Respiratory Pattern Normal 04/13/19 19:26 Blood Pressure 121/73 04/13/19 19:36 Pulse Oximetry 98 04/13/19 19:36 Oxygen Delivery Method Room Air 04/13/19 19:36 Oxygen Flow Rate 0 04/13/19 19:36 Pain Level 0 04/13/19 19:36 Comment 04/13/19 11:53 Intake & Output 04/12/19 04/13/19 04/13/19 23:59 11:59 23:59 Intake Total 630 / 630 1595 / 2545 950 / 2545 Balance 630 / 630 1595 / 2545 950 / 2545 Weight 122.8 kg 121.9 kg Intake: IV 230 / 230 600 / 1000 400 / 1000 Oral 100 / 100 550 / 550 Blood Product 300 / 300 950 / 950 Rbc Leuko Reduced Unit 300 / 300 [id number] Rbc Leuko Reduced Unit 350 / 350 [id number] Rbc Leuko Reduced Unit 300 / 300 [id number] Rbc Leuko Reduced Unit 300 / 300 [id number] Other 45 / 45 Rbc Leuko Reduced Unit 25 / 25 [id number] Rbc Leuko Reduced Unit 20 / 20 [id number] Other: Urine Color Yellow Urine Appearance Clear Clear Urine Odor Normal Comment voidrd in toiled Voiding Methods Toilet Toilet Laboratory Results WBC 4.33 k/cumm (4.4-10.8) L 04/13/19 14:38 RBC 3.81 m/cumm (4.50-6.00) L 04/13/19 14:38 Hgb 7.7 g/dL (13.5-17.5) L 04/13/19 14:38 Hct 27.5 % (40.0-50.0) L 04/13/19 14:38 MCV 72.2 fL (80-95) L 04/13/19 14:38 MCH 20.2 pg (27.0-33.0) L 04/13/19 14:38 MCHC 28.0 g/dL (32.0-36.0) L 04/13/19 14:38 RDW 26.0 % (11.8-14.1) H 04/13/19 14:38 Plt Count 224 x1000/uL (130-400) 04/13/19 14:38 MPV fL (8.0-11.0) 04/13/19 14:38 Immature Gran % 0.5 04/13/19 14:38 69.0 04/13/19 14:38 1.0 % 04/13/19 06:40 20.1 04/13/19 14:38 Atypical Lymphs % 4 04/13/19 06:40 7.2 04/13/19 14:38 1.4 04/13/19 14:38 1.8 04/13/19 14:38 3.0 % 04/13/19 06:40 Absolute Neutrophils 2.99 k/cumm (1.2-6.7) 04/13/19 14:38 Absolute Lymphocytes 0.87 k/cumm (1.2-3.4) L 04/13/19 14:38 Absolute Monocytes 0.31 k/cumm (0.11-0.7) 04/13/19 14:38 Absolute Eosinophils 0.06 k/cumm (0.0-0.7) 04/13/19 14:38 Absolute Basophils 0.08 k/cumm (0.0-0.2) 04/13/19 14:38 Nucleated RBCs 4 /100WBC 04/13/19 06:40 Rbc morph reviewed 04/13/19 14:38 RBC Morphology See below 04/13/19 14:38 Present 04/13/19 14:38 3+ 04/13/19 14:38 3+ 04/13/19 14:38 3+ 04/13/19 14:38 3+ 04/13/19 14:38 3+ 04/13/19 14:38 2+ 04/13/19 06:40 PT 10.4 sec (9.3-11.0) 04/12/19 16:10 INR 1.0 (0.9-1.1) 04/12/19 16:10 APTT 20.3 sec (21.0-31.4) L 04/12/19 16:10 Sodium 141 mmol/L (136-145) 04/13/19 06:40 Potassium 3.9 mmol/L (3.5-5.1) 04/13/19 06:40 Chloride 106 mmol/L (98-107) 04/13/19 06:40 Carbon Dioxide 27.0 mmol/L (21.0-32.0) 04/13/19 06:40 8.0 mmol/L (3-11) 04/13/19 06:40 BUN 8 mg/dL (7-18) 04/13/19 06:40 0.82 mg/dL (0.70-1.30) 04/13/19 06:40 >= 60.00 (mL/min/1.73m2) 04/13/19 06:40 Glucose 95 mg/dL (70-100) 04/13/19 06:40 Calcium 8.4 mg/dL (8.5-10.1) L 04/13/19 06:40 Iron 23 ug/dL (50-175) L 04/12/19 16:05 TIBC 513 ug/dL (250-450) H 04/12/19 16:05 Transferrin % Sat 4 % (20-55) L 04/12/19 16:05 1 ng/mL (8-388) L 04/12/19 16:05 0.9 mg/dL (0.2-1.0) 04/12/19 16:05 AST 8 U/L (15-37) L 04/12/19 16:05 ALT 15 U/L (16-63) L 04/12/19 16:05 60 U/L (46-116) 04/12/19 16:05 7.5 g/dL (6.4-8.2) 04/12/19 16:05 4.2 g/dL (3.4-5.0) 04/12/19 16:05 Patient ABO/Rh A Positive 04/12/19 16:05 Antibody Screen Negative 04/12/19 16:05 Crossmatch See Detail 04/12/19 16:05
[2019-04-14 03:53] VITALS: BP 117/71; PULSE 64; RESP 18; TEMP 36.6; O2SAT 96
[2019-04-14] MEDS: Pantoprazole 40 MG VIAL IVP (05:44)
[2019-04-14] MEDS: Normal Saline Flush 10 ML SYR IVP (05:45)
[2019-04-14 07:14] LABS: HGB 7.9 g/dL (13.5-17.5); Mean Corp. HGB Concentration 28.2 g/dL (32.0-36.0); Mean Corpuscular Hemoglobin 20.4 pg (27.0-33.0); Mean Corpuscular Volume 72.4 fL (80-95); RBC 3.87 m/cumm (4.50-6.00); RBC Distribution Width 26.2 % (11.8-14.1); White Blood Cell Count 3.97 k/cumm (4.4-10.8)
[2019-04-14 07:19] VITALS: PULSE 68
[2019-04-14 07:19] LABS: Anion Gap 8.3 mmol/L (3-11); BUN 7 mg/dL (7-18); CO2 26.7 mmol/L (21.0-32.0); CREATININE 0.85 mg/dL (0.70-1.30); Calcium 8.6 mg/dL (8.5-10.1); Chloride 107 mmol/L (98-107); Glucose 97 mg/dL (70-100); Potassium 3.8 mmol/L (3.5-5.1); Sodium 142 mmol/L (136-145)
[2019-04-14 07:22] LABS: Platelet Count 228 x1000/uL (130-400)
[2019-04-14] MEDS: Sucralfate 1 GM TAB PO ×2 (07:47→11:20)
[2019-04-14 08:10] VITALS: BP 128/79; PULSE 70; RESP 16; TEMP 36.8; O2SAT 97
[2019-04-14] MEDS: Ascorbic Acid 500 MG TAB PO (08:43)
[2019-04-14] MEDS: Ferrous Sulfate 325 MG TAB PO (08:43)
[2019-04-14 09:12] VITALS: PULSE 66
[2019-04-14 09:38] LABS: Reticulocyte 3.3 % (0.5-2.4)
--- NOTE | 2019-04-14 10:18 | PDOC.CMDIS ---
LACE Index Scoring Tool - Questions: Length of Stay (in days): 2 Acuity (Admit via E.D.?): Yes E.D. Visits: 1 - Answers: Total Score: 6 Risk of Readmission: Low Risk Care Management Discharge Reason for Hospitalization: Anemia Discharge Plan: Phi will return home when medically cleared with an outpatient follow up plan and no additional anticipated services at this time. He will be transported by his , Josette, via private vehicle when discharged. Patient/Family Education Needs: Review of discharge instructions, discuss Ask Me Three.
[2019-04-14 10:41] LABS: LDH 126 U/L (85-227)
[2019-04-14 11:22] VITALS: BP 128/75; PULSE 61; RESP 16; TEMP 36.9; O2SAT 97
--- NOTE | 2019-04-14 11:26 | DSE_ITS ---
Date of service: 04/14/19 Time of Service: DS: Diagnosis Discharge Diagnosis (1) Iron deficiency anemia: Start date: 04/14/19 Start time: Status: Acute Asessment and Plan: Started on folic acid 2 mg daily. Ruling out microcytotic anemias, thalassemia, given enlarged spleen and chronic anemia. Continue to monitor. Recommend CBC in 1 week, follow up with PCP in 2 weeks as scheduled. Lab results pending will follow up with PCP for results. (2) Hiatal hernia: Start date: 04/14/19 Start time: : Status: Acute Asessment and Plan: esophagitis by imaging, given hernia started on omeprazole and zantac for severe reflux. (3) Esophageal ulcer without bleeding: Status: Acute Discharge Plan Disposition Patient Disposition: HOME Condition: Improving Discharge Details Chief Complaint: GenMedical Clinical Impression: Iron deficiency anemia Reason For Visit: ANEMIA Admit Date/Time: 04/12/19 17:28 Admit Provider: Rocky Portillo Attending Provider: Rocky Portillo Primary Care Provider: Kaylee Villalta ED Provider: James [facility] Course Hospital Course: Mr. Garcia is a 28 y.o Male with chronic anemia admitted to /s on 04/12 for anemia after having blood work done by his PCP revealing hemoglobin of 4.9. He was admitted for transfusion to correct his anemia and for surgical consultation for EGD/ c-scope. Over the course of his hospital stay he was seen by surgery and EGD was preformed. Large hiatal hernia with ulceration was found. Surgery for hernia repair was discussed by surgery with plans to follow up as an outpatient. Carafate started. He was told to stop drinking. CT of the abdomen obtained revealed enlarged spleen. Given the microcytotic anemia and enlarged spleen question of thalassemia or autoimmune component. Electrophariesis, retic count, Kaylynn, LDH, haptoglobin ordered. He was started on folic acid daily, H/H stable this am at 7.9 and 28.0. He is not having any pain, nausea or vomiting. He is being discharged home today with prescriptions for carafate, zantac, folic acid, and repeat cbc in 1 week. He has a follow up with his PCP in 2 weeks, and he will need follow up with surgery. CXR showed borderline cardiomegaly, recommend repeat CXR in 2 weeks, possibly secondary to anemia. He denies N/V/D CP, and SOB. Home Meds and New Rx's Prescriptions: New ranitidine HCl [Zantac] 150 mg tablet 150 mg PO BID Qty: 60 RF: 0 folic acid-vit B6-vit B12 2.5-25-2 mg tablet 1 tab PO DAILY Qty: 60 RF: 0 sucralfate [Carafate] 1 gram tablet 1 gm PO QACHS Qty: 54 RF: 0 Continued omeprazole 40 MG capsule,delayed release(DR/EC) 40 mg PO BID Qty: 180 RF: 3 magnesium oxide 400 mg magnesium Capsule 400 mg PO DAILY RF: 0 cholecalciferol (vitamin D3) [Vitamin D3] 2,000 unit Tablet 4,000 unit PO DAILY RF: 0 Discharge Instructions Instructions: Peptic Ulcer (GEN), Hiatal Hernia (GEN), Gastritis (GEN), Diet for Stomach Ulcers and Gastritis (GEN), Iron Rich Diet (GEN), Anemia (GEN), Esophagitis (GEN) Additional Instructions: Recheck CBC in one week. Take zantac and omeprazole twice a day STOP DRINKING Follow up with surgery for hernia repair Follow up with PCP as scheduled she will go over your lab work with you. Stand Alone Forms: Nursing Discharge Form Referrals: Kaylee Villalta [Primary Care Provider] - Activity:: Activity as Tolerated Equipment/Supplies:: No Equipment Needed Diet:: Normal Diet Discharge Orders Discharge Orders: Discharge Order (Routine); Ordered 04/14/19 Ordered By: Kennedi Damian Other Ambulatory Orders: Complete Blood Count No Diff (Routine) Location: None Selected Ordered By: Kennedi Damian Exam Narrative Exam Narrative: General: well appearing young man, pale. 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 HEENT: normocephalic, atruamatic, pupils equal and round, EOMI, mucous membranes moist. Neck: supple. Cardiovascular: regular rate and rhythm, no murmur appreciated, nontachycardic. Respiratory: respirations even and unlabored, lung sounds clear bilaterally. GI: normoactive bowel sounds, abdomen soft, nontender on palpation, nondistended, no masses appreciated. Extremities: no clubbing, cyanosis or edema. Bilateral pedal pulses palpable. DS: Data Vitals/I&O Vitals and I&O: Vital Signs Temperature 36.9 C 04/14/19 11:22 Temperature Source Tympanic 04/14/19 11:22 Pulse 61 04/14/19 11:22 Pulse Rhythm Regular 04/14/19 07:47 Respiratory Rate 16 04/14/19 11:22 Respiratory Effort Non-Labored 04/14/19 07:47 Respiratory Depth Normal 04/14/19 07:47 Respiratory Pattern Normal 04/14/19 07:47 Blood Pressure 128/75 04/14/19 11:22 Pulse Oximetry 97 04/14/19 11:22 Oxygen Delivery Method Room Air 04/14/19 11:22 Oxygen Flow Rate 0 04/14/19 11:22 Pain Level 0 04/14/19 11:22 Comment 04/13/19 11:53 Intake & Output 04/13/19 04/13/19 04/14/19 11:59 23:59 11:59 Intake Total 1595 / 2545 950 / 2545 1530 / 1530 Balance 1595 / 2545 950 / 2545 1530 / 1530 Weight 121.9 kg 118.4 kg Intake: IV 600 / 1000 400 / 1000 10 / 10 Oral 550 / 550 1520 / 1520 Blood Product 950 / 950 Rbc Leuko Reduced Unit 300 / 300 [id number] Rbc Leuko Reduced Unit 350 / 350 [id number] Rbc Leuko Reduced Unit 300 / 300 [id number] Other 45 / 45 Rbc Leuko Reduced Unit 25 / 25 [id number] Rbc Leuko Reduced Unit 20 / 20 [id number] Other: Urine Color Pale Yellow Urine Appearance Clear Comment voidrd in toiled Pt voiding ad poonam in toilet. Per pt report, urine was pale, yellow, and not cloudy. Pt denies discomfort voiding. Voiding Methods Toilet Toilet Completed studies during hospitalization [Text1]: Exam(s) a RAD:XR chest 2V PA & lateral SYMPTOM/DIAGNOSIS: COUGH PA AND LATERAL CHEST: 04/12 Heart is at the upper limits of normal in size to mildly enlarged. The lungs are generally clear. No pleural effusion is seen. There is a presumed small hiatal hernia. CONCLUSION: Borderline cardiomegaly. No evidence of acute intrapulmonary process. EXAM DATE/TIME: 04/12/2019 4:33 PM CLINICAL HISTORY: 28 years old, male; Other: Cough TECHNIQUE: Imaging protocol: XR of the chest Views: 2 views. COMPARISON: CR CHEST 2 VIEWS PA,LAT 04/03/2016 12:27 PM FINDINGS: Lungs: Unremarkable. No consolidation. Pleural space: Unremarkable. No pleural effusion. No pneumothorax. Heart/Mediastinum: Findings suspicious for gastric hiatus hernia. The heart is borderline enlarged. Bones/joints: Unremarkable. IMPRESSION: 1. Borderline cardiomegaly. 2. Gastric hiatus hernia. Exam(s) a CT:CT chest/abd/pel w SYMPTOMS/DIAGNOSIS: HIATAL HERNIA CHEST, ABDOMEN AND PELVIS CT: CT examination of the chest, abdomen and pelvis was performed with a bolus infusion of 100 cc's of Omnipaque 350 and ingestion of dilute barium. The lungs are clear. Mild nonspecific pleural thickening is noted at the lung bases posteriorly bilaterally. No focal mass identified. No consolidation. The tracheobronchial tree appears intact. No mediastinal or hilar adenopathy. Vascular structures of the chest are unremarkable as visualized. The heart is mildly enlarged. No axillary or supraclavicular adenopathy. The esophagus appears to have a thickened wall particularly from mid to distal esophagus. There is a hiatal hernia containing a large portion of the stomach. No evidence of obstruction. The liver is unremarkable in appearance. Spleen is moderately enlarged. Pancreas appears normal. Gallbladder and bile ducts are CT normal. The abdominal aorta is of normal diameter. The adrenals and kidneys appear normal. No urinary tract calcification or obstruction. No significant abdominal wall hernia. The appendix is normal. No evidence of diverticulitis or bowel obstruction. No abdominal or pelvic adenopathy. CONCLUSION: 1. Cardiomegaly. 2. Splenomegaly. 3. Esophageal wall thickening, this is a nonspecific findings but could represent esophagitis. There is a moderate sized hiatal hernia containing a significant portion fo the stomach. Labs on day of discharge: Labs from last 24 hours 04/14/19 04/14/19 04/14/19 07:00 07:00 07:00 WBC RBC Hgb Hct MCV MCH MCHC RDW Plt Count MPV Immature Gran % Neutrophils % Lymphocytes % Monocytes % Eosinophils % Basophils % Absolute Neutrophils Absolute Lymphocytes Absolute Monocytes Absolute Eosinophils Absolute Basophils Differential Comment RBC Morphology Polychromasia Hypochromasia Poikilocytosis Anisocytosis Microcytosis Ovalocytes Retic Count 3.3 H Haptoglobin Pending Sodium Potassium Chloride Carbon Dioxide Anion Gap BUN Creatinine Estimated GFR/1.73 m2 Glucose Calcium Lactate Dehydrogenase Total Protein (PEP) Pending Albumin % (PEP) Pending Pfdot-4-Taalhlfpq (%) Pending Ueanf-0-Skhqmesna (%) Pending Beta Globulins (%) Pending Gamma Globulins (%) Pending M-Jeff % Pending PEP Comment Pending Direct Antiglob Test Pending Crossmatch 04/14/19 04/14/19 04/13/19 07:00 07:00 14:38 WBC 3.97 L 4.33 L RBC 3.87 L 3.81 L Hgb 7.9 L 7.7 L Hct 28.0 L 27.5 L MCV 72.4 L 72.2 L MCH 20.4 L 20.2 L MCHC 28.2 L 28.0 L RDW 26.2 H 26.0 H Plt Count 228 224 MPV Immature Gran % 0.5 Neutrophils % 69.0 Lymphocytes % 20.1 Monocytes % 7.2 Eosinophils % 1.4 Basophils % 1.8 Absolute Neutrophils 2.99 Absolute Lymphocytes 0.87 L Absolute Monocytes 0.31 Absolute Eosinophils 0.06 Absolute Basophils 0.08 Differential Comment Rbc morph reviewed RBC Morphology See below Polychromasia Present Hypochromasia 3+ Poikilocytosis 3+ Anisocytosis 3+ Microcytosis 3+ Ovalocytes 3+ Retic Count Haptoglobin Sodium 142 Potassium 3.8 Chloride 107 Carbon Dioxide 26.7 Anion Gap 8.3 BUN 7 Creatinine 0.85 Estimated GFR/1.73 m2 >= 60.00 Glucose 97 Calcium 8.6 Lactate Dehydrogenase 126 Total Protein (PEP) Albumin % (PEP) Glhbx-9-Ayqcscett (%) Fkdfy-8-Trsxapuqg (%) Beta Globulins (%) Gamma Globulins (%) M-Jeff % PEP Comment Direct Antiglob Test Crossmatch 04/13/19 04/13/19 04/12/19 13:00 11:55 16:05 WBC RBC Hgb Cancelled Cancelled Hct Cancelled Cancelled MCV MCH MCHC RDW Plt Count MPV Immature Gran % Neutrophils % Lymphocytes % Monocytes % Eosinophils % Basophils % Absolute Neutrophils Absolute Lymphocytes Absolute Monocytes Absolute Eosinophils Absolute Basophils Differential Comment RBC Morphology Polychromasia Hypochromasia Poikilocytosis Anisocytosis Microcytosis Ovalocytes Retic Count Haptoglobin Sodium Potassium Chloride Carbon Dioxide Anion Gap BUN Creatinine Estimated GFR/1.73 m2 Glucose Calcium Lactate Dehydrogenase Total Protein (PEP) Albumin % (PEP) Rjaik-4-Ynoitzzce (%) Bqqxt-3-Hftkjkqqp (%) Beta Globulins (%) Gamma Globulins (%) M-Jeff % PEP Comment Direct Antiglob Test Crossmatch See Detail [facility] Medical History Esophageal ulcer without bleeding (Acute) Hiatal hernia (Acute) Hiatal hernia with GERD and esophagitis (Acute) Iron deficiency anemia (Acute) Surgical History EGD - MAC (04/03/16) Family History Mother No problems noted. Father Diabetes Sister No problems noted. Grandfather No problems noted. Grandfather Neoplasm BRAIN Grandmother No problems noted. Grandmother , CAR ACCIDENT at age 45. No problems noted. 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
--- NOTE | 2019-04-14 12:00 | W.PM.PROGNOT ---
Date of Service Date of service: 04/14/19 Time of Service: 12:01 Assessment and Plan (1) Esophageal ulcer without bleeding: Current visit: No Status: Acute Hgb is stable and patient asymptomatic Will advance diet Okay for DC per hospitalist service Patient will follow up with PCP as scheduled in 2 weeks. Advised to consider surgical hiatal hernia repair. Continue PPI and Carafate Subjective Interval history since last seen: Tolerating clears. No evidence of bleeding. No abdominal pain. No N/V Objective Objective Clinical Data: Abnormal lab results 04/12/19 04/13/19 04/14/19 Range/Units 16:05 14:38 07:00 WBC 4.33 L 3.97 L (4.4-10.8) k/cumm RBC 3.81 L 3.87 L (4.50-6.00) m/cumm Hgb 7.7 L 7.9 L (13.5-17.5) g/dL Hct 27.5 L 28.0 L (40.0-50.0) % MCV 72.2 L 72.4 L (80-95) fL MCH 20.2 L 20.4 L (27.0-33.0) pg MCHC 28.0 L 28.2 L (32.0-36.0) g/dL RDW 26.0 H 26.2 H (11.8-14.1) % Absolute Lymphocytes 0.87 L (1.2-3.4) k/cumm Retic Count (0.5-2.4) % Crossmatch See Detail 04/14/19 Range/Units 07:00 WBC (4.4-10.8) k/cumm RBC (4.50-6.00) m/cumm Hgb (13.5-17.5) g/dL Hct (40.0-50.0) % MCV (80-95) fL MCH (27.0-33.0) pg MCHC (32.0-36.0) g/dL RDW (11.8-14.1) % Absolute Lymphocytes (1.2-3.4) k/cumm Retic Count 3.3 H (0.5-2.4) % Crossmatch Vital Signs Temperature 98.4 F 04/14/19 11:22 Temperature Source Tympanic 04/14/19 11:22 Pulse 61 04/14/19 11:22 Pulse Rhythm Regular 04/14/19 07:47 Respiratory Rate 16 04/14/19 11:22 Respiratory Effort Non-Labored 04/14/19 07:47 Respiratory Depth Normal 04/14/19 07:47 Respiratory Pattern Normal 04/14/19 07:47 Blood Pressure 128/75 04/14/19 11:22 Pulse Oximetry 97 04/14/19 11:22 Oxygen Delivery Method Room Air 04/14/19 11:22 Oxygen Flow Rate 0 04/14/19 11:22 Pain Level 0 04/14/19 11:22 Comment 04/13/19 11:53 Intake & Output 04/13/19 04/14/19 04/14/19 23:59 11:59 23:59 Intake Total 950 / 2545 1530 / 1530 Balance 950 / 2545 1530 / 1530 Weight 261 lb 0.437 oz Intake: IV 400 / 1000 10 Oral 550 / 550 1520 / 1520 Other: Urine Color Pale Yellow Comment voidrd in toiled Pt voiding ad poonam in toilet. Per pt report, urine was pale, yellow, and not cloudy. Pt denies discomfort voiding. Voiding Methods Toilet Toilet Laboratory Results WBC 3.97 k/cumm (4.4-10.8) L 04/14/19 07:00 RBC 3.87 m/cumm (4.50-6.00) L 04/14/19 07:00 Hgb 7.9 g/dL (13.5-17.5) L 04/14/19 07:00 Hct 28.0 % (40.0-50.0) L 04/14/19 07:00 MCV 72.4 fL (80-95) L 04/14/19 07:00 MCH 20.4 pg (27.0-33.0) L 04/14/19 07:00 MCHC 28.2 g/dL (32.0-36.0) L 04/14/19 07:00 RDW 26.2 % (11.8-14.1) H 04/14/19 07:00 Plt Count 228 x1000/uL (130-400) 04/14/19 07:00 MPV fL (8.0-11.0) 04/14/19 07:00 Immature Gran % 0.5 04/13/19 14:38 69.0 04/13/19 14:38 1.0 % 04/13/19 06:40 20.1 04/13/19 14:38 Atypical Lymphs % 4 04/13/19 06:40 7.2 04/13/19 14:38 1.4 04/13/19 14:38 1.8 04/13/19 14:38 3.0 % 04/13/19 06:40 Absolute Neutrophils 2.99 k/cumm (1.2-6.7) 04/13/19 14:38 Absolute Lymphocytes 0.87 k/cumm (1.2-3.4) L 04/13/19 14:38 Absolute Monocytes 0.31 k/cumm (0.11-0.7) 04/13/19 14:38 Absolute Eosinophils 0.06 k/cumm (0.0-0.7) 04/13/19 14:38 Absolute Basophils 0.08 k/cumm (0.0-0.2) 04/13/19 14:38 Nucleated RBCs 4 /100WBC 04/13/19 06:40 Rbc morph reviewed 04/13/19 14:38 RBC Morphology See below 04/13/19 14:38 Present 04/13/19 14:38 3+ 04/13/19 14:38 3+ 04/13/19 14:38 3+ 04/13/19 14:38 3+ 04/13/19 14:38 3+ 04/13/19 14:38 2+ 04/13/19 06:40 Retic Count 3.3 % (0.5-2.4) H 04/14/19 07:00 PT 10.4 sec (9.3-11.0) 04/12/19 16:10 INR 1.0 (0.9-1.1) 04/12/19 16:10 APTT 20.3 sec (21.0-31.4) L 04/12/19 16:10 Sodium 142 mmol/L (136-145) 04/14/19 07:00 Potassium 3.8 mmol/L (3.5-5.1) 04/14/19 07:00 Chloride 107 mmol/L (98-107) 04/14/19 07:00 Carbon Dioxide 26.7 mmol/L (21.0-32.0) 04/14/19 07:00 8.3 mmol/L (3-11) 04/14/19 07:00 BUN 7 mg/dL (7-18) 04/14/19 07:00 0.85 mg/dL (0.70-1.30) 04/14/19 07:00 >= 60.00 (mL/min/1.73m2) 04/14/19 07:00 Glucose 97 mg/dL (70-100) 04/14/19 07:00 Calcium 8.6 mg/dL (8.5-10.1) 04/14/19 07:00 Iron 23 ug/dL (50-175) L 04/12/19 16:05 TIBC 513 ug/dL (250-450) H 04/12/19 16:05 Transferrin % Sat 4 % (20-55) L 04/12/19 16:05 1 ng/mL (8-388) L 04/12/19 16:05 0.9 mg/dL (0.2-1.0) 04/12/19 16:05 AST 8 U/L (15-37) L 04/12/19 16:05 ALT 15 U/L (16-63) L 04/12/19 16:05 60 U/L (46-116) 04/12/19 16:05 126 U/L (85-227) 04/14/19 07:00 7.5 g/dL (6.4-8.2) 04/12/19 16:05 4.2 g/dL (3.4-5.0) 04/12/19 16:05 Patient ABO/Rh A Positive 04/12/19 16:05 Antibody Screen Negative 04/12/19 16:05 Crossmatch See Detail 04/12/19 16:05
[2019-04-16 11:11] LABS: Haptoglobin 36 mg/dL (32-197)
[2019-04-16 15:08] LABS: Total Protein 6.4 g/dl (6.3-8.2)
== END 2019-04-14 12:45 | disposition home or self-care (01) | DRG 812 ==
LOC: ER 18:00 → MS 18:20
PROVIDERS: Nurse Practitioner; Nurse Practitioner Family; Surgery; Admitting Provider Internal Medicine; Emergency Provider Nurse Practitioner Family; PCP Nurse Practitioner; Visit Provider Internal Medicine
PROC: 0DJ68ZZ Inspection of Stomach, Via Natural or Artificial Opening Endoscopic (ICD-10-PCS; CPT 43235; principal; 2019-04-13 14:00)
DX: D50.0 Iron deficiency anemia secondary to blood loss (chronic) (principal); K22.10 Ulcer of esophagus without bleeding; K44.9 Diaphragmatic hernia without obstruction or gangrene; K21.0 Gastro-esophageal reflux disease with esophagitis; K29.80 Duodenitis without bleeding; K31.89 Other diseases of stomach and duodenum; K31.7 Polyp of stomach and duodenum; T47.1X5A Adverse effect of other antacids and anti-gastric-secretion drugs, initial encounter; K25.9 Gastric ulcer, unspecified as acute or chronic, without hemorrhage or perforation; K22.70 Barrett's esophagus without dysplasia; Z67.10 Type A blood, Rh positive
CPT/HCPCS: 43239; 36415; 36430; 74177; 80048; 80053; 85027; 86850; 86900; 86901; 86920; 88305; 99222; 99231; 99232; 99239; 99252; 99285; 71046; 71260; 82728; 83010; 83540; 83550; 83615; 84165; 85014; 85018; 85025; 85045; 85610; 85730; 86880; 99284; J1756; J2405; J3490; P9016; Q9967

== ENCOUNTER 2019-04-22 01:33 | Outpatient (CLI) | payer BC, SELFPAY ==
[2019-04-22 10:58] LABS: HCT 32.4 % (40.0-50.0); HGB 8.9 g/dL (13.5-17.5); Mean Corp. HGB Concentration 27.5 g/dL (32.0-36.0); Mean Corpuscular Hemoglobin 20.7 pg (27.0-33.0); Mean Corpuscular Volume 75.3 fL (80-95); Platelet Count 179 x1000/uL (130-400); RBC Distribution Width 26.9 % (11.8-14.1); White Blood Cell Count 2.87 k/cumm (4.4-10.8)
== END 2019-04-22 01:53 ==
PROVIDERS: Nurse Practitioner Family; PCP Nurse Practitioner; Visit Provider Surgery
DX: D50.9 Iron deficiency anemia, unspecified (principal)
CPT/HCPCS: 36415; 85027

== ENCOUNTER 2019-05-07 01:43 | Outpatient (RCR) | payer BC, SELFPAY ==
[2019-05-07] MEDS: Normal Saline Flush 10 ML SYR IVP (07:25)
[2019-05-08 09:53] LABS: Rheumatoid Factor <8 IU/mL (<12.5)
[2019-05-08 14:40] LABS: ANA Interpretation Negative (NEGAT)
[2019-05-09 16:41] LABS: Hemoglobinopathy Interpretat Interpretation:
== END 2019-05-07 23:59 | disposition home or self-care (01) ==
LOC: INF 01:43
PROVIDERS: PCP Nurse Practitioner; Visit Provider Internal Medicine
DX: D50.9 Iron deficiency anemia, unspecified (principal)
CPT/HCPCS: 36415; 96365; 83020; 86038; 86431; J1756

== ENCOUNTER 2019-05-21 02:07 | Outpatient (RCR) | payer BC, SELFPAY ==
[2019-05-14] MEDS: Normal Saline Flush 10 ML SYR IVP (08:27)
[2019-05-21] MEDS: Normal Saline Flush 10 ML SYR IVP (07:48)
== END 2019-06-07 23:59 | disposition home or self-care (01) ==
LOC: INF 02:07
PROVIDERS: PCP Nurse Practitioner; Visit Provider Internal Medicine
DX: D50.9 Iron deficiency anemia, unspecified (principal)
CPT/HCPCS: 96365; 96366; J1756

== ENCOUNTER 2019-11-01 01:24 | Outpatient (RCR) | payer BC, SELFPAY ==
[2019-10-18] MEDS: IRON SUCROSE COMPLEX 200 MG in Normal Saline 100 ML 440 MG IVPB (14:06)
[2019-10-18] MEDS: Normal Saline Flush 10 ML SYR IVP (14:09)
[2019-10-25] MEDS: Normal Saline Flush 10 ML SYR IVP (14:02)
[2019-10-25] MEDS: IRON SUCROSE COMPLEX 200 MG in Normal Saline 100 ML 440 MG IVPB (14:04)
[2019-11-01] MEDS: IRON SUCROSE COMPLEX 200 MG in Normal Saline 100 ML 440 MG IVPB (14:28)
[2019-11-01] MEDS: Normal Saline Flush 10 ML SYR IVP (14:28)
== END 2019-11-06 23:59 | disposition home or self-care (01) ==
LOC: INF 01:24
PROVIDERS: PCP Nurse Practitioner; Visit Provider Internal Medicine Hematology
DX: D50.9 Iron deficiency anemia, unspecified (principal)
CPT/HCPCS: 96365; J1756

== ENCOUNTER 2019-11-15 03:27 | Outpatient (RCR) | payer BC, SELFPAY ==
[2019-11-08] MEDS: Normal Saline Flush 10 ML SYR IVP (14:26)
[2019-11-08] MEDS: IRON SUCROSE COMPLEX 200 MG in Normal Saline 100 ML 440 MG IVPB (14:26)
[2019-11-15] MEDS: IRON SUCROSE COMPLEX 200 MG in Normal Saline 100 ML 440 MG IVPB (14:18)
[2019-11-15] MEDS: Normal Saline Flush 10 ML SYR IVP (14:19)
== END 2019-12-06 23:59 | disposition home or self-care (01) ==
LOC: INF 03:27
PROVIDERS: PCP Nurse Practitioner; Visit Provider Internal Medicine Hematology
DX: E61.1 Iron deficiency (principal)
CPT/HCPCS: 96365; 96374; J1756

== ENCOUNTER 2020-01-05 01:01 | Outpatient (RCR) | payer BC, SELFPAY ==
[2019-12-20 15:18] LABS: Ferritin 10 ng/mL (26-388)
[2019-12-20 15:23] LABS: Abs Immature Grans 0.01 k/cumm (0.0-0.09); Absolute Basophil Count 0.04 k/cumm (0.0-0.2); Absolute Eosinophil Count 0.06 k/cumm (0.0-0.7); Absolute Lymphocyte Count 1.15 k/cumm (1.2-3.4); Absolute Monocyte Count 0.38 k/cumm (0.11-0.7); Absolute Neutrophil Count 4.16 k/cumm (1.2-6.7); Basophils % 0.7; HCT 43.6 % (40.0-50.0); HGB 13.6 g/dL (13.5-17.5); Immature Grans % 0.2 %; Lymphocytes % 19.8; Mean Corp. HGB Concentration 31.2 g/dL (32.0-36.0); Mean Corpuscular Hemoglobin 23.2 pg (27.0-33.0); Mean Corpuscular Volume 74.3 fL (80-95); Mean Platelet Volume 12.1 fL (8.0-11.0); Monocytes % 6.6; Neutrophils % 71.7; Platelet Count 242 x1000/uL (130-400); RBC 5.87 m/cumm (4.50-6.00); RBC Distribution Width 17.5 % (11.8-14.1)
[2019-12-20 15:46] LABS: Anisocytosis 1+; Diff Comment RBC Morph Reviewed; Hypochromasia 3+; Microcytosis 3+
[2020-01-05] MEDS: IRON SUCROSE COMPLEX 300 MG in Normal Saline 250 ML 132.5 MG IVPB (09:17)
[2020-01-05] MEDS: Normal Saline Flush 10 ML SYR IVP (09:18)
== END 2020-01-06 23:59 | disposition home or self-care (01) ==
LOC: INF 01:01
PROVIDERS: PCP Nurse Practitioner; Visit Provider Internal Medicine Hematology
DX: D50.9 Iron deficiency anemia, unspecified (principal)
CPT/HCPCS: 36415; 96365; 96366; 82728; 85025; J1756

== ENCOUNTER 2020-01-26 03:23 | Outpatient (RCR) | payer BC, SELFPAY ==
[2020-01-12] MEDS: IRON SUCROSE COMPLEX 300 MG in Normal Saline 250 ML 132.5 MG IVPB (09:38)
[2020-01-19] MEDS: IRON SUCROSE COMPLEX 300 MG in Normal Saline 250 ML 132.5 MG IVPB (09:31)
[2020-01-19] MEDS: Normal Saline Flush 10 ML SYR IVP (09:31)
[2020-01-26] MEDS: IRON SUCROSE COMPLEX 300 MG in Normal Saline 250 ML 132.5 MG IVPB (09:18)
[2020-01-26] MEDS: Normal Saline Flush 10 ML SYR IVP (09:32)
== END 2020-02-05 23:59 | disposition home or self-care (01) ==
LOC: INF 03:23
PROVIDERS: PCP Nurse Practitioner; Visit Provider Internal Medicine Hematology
DX: D50.9 Iron deficiency anemia, unspecified (principal)
CPT/HCPCS: 96365; 96366; J1756